=== PATIENT | male | born 1995 | race Two or more races ===

== ENCOUNTER 2016-05-20 05:44 | Inpatient (IN) | payer MEDICAID ==
[2016-05-20] VITALS (9 sets, daily range): BP systolic 117–170; BP diastolic 90–116
[~2016-05-20] VITALS: Ht 170.2 cm; Wt 72.6 kg
[~2016-05-20 05:44] MED LIST: CEPHALEXIN500 MG ORAL; HYDROCORTISONE28 G2 TP; NKM; PEPCID20 MG ORAL; TRAMADOL HCL50 MG ORAL; ZOFRAN ODT4 MG ORAL
[2016-05-20] MEDS ORDERED: NKM (05:51)
--- NOTE | 2016-05-20 05:53 | Emergency Room Report ---
History of Present Illness General Chief Complaint: Chest Pain Source: Patient (Omar Reddy M.D.) Present Illness HPI Patient presents with severe upper abdominal pain that started suddenly yesterday AM at 11 am. He states it started in his spine. Now radiates from epigastric area towards his back. It is in his upper abdomen and in his ribs. He's been vomiting yellow material. He's had a history of pancreatitis and this past but denies that this feels the same as that. He is moving his bowels without diarrhea or constipation. Denies any fevers or chills has no productive cough. No MARTE, rashes, joint pain. Pain is 10/10, burning, and constant. No depression. No dysuria. Admitted in the past for pancreatitis. (Omar Reddy M.D.) Allergies: Coded Allergies: NO KNOWN ALLERGIES (Unverified Allergy, Unknown, 10/29/15) Patient History Past Medical History: see triage record Social History: Denies: alcohol use, drug use, smoking Social History Narrative at home Reviewed Nursing Documentation: PMH: Agreed, PSxH: Agreed (Omar Reddy M.D.) Nursing Documentation-PMH Past Medical History: No Stated History Hx Cardiac Problems: No Hx Asthma: Yes Hx Cancer: Yes - pt stated aunt had stage 4 cancer Hx Gastrointestinal Problems: No Hx Neurological Problems: No (Omar Reddy M.D.) Review of Systems All Other Systems: negative except mentioned in HPI (Omar Reddy M.D.) Physical Exam Vital Signs Date Time Temp Pulse Resp B/P Pulse Ox O2 Delivery O2 Flow Rate FiO2 05/20/16 05:48 97.0 82 12 164/113 96 Room Air Sp02 EP Interpretation: reviewed, normal General Appearance: moderate distress Head: normocephalic Eyes: bilateral eye PERRL, bilateral eye normal inspection ENT: moist mucus membranes Neck: supple Respiratory: lungs clear, normal breath sounds Cardiovascular #1: regular rate, rhythm Cardiovascular #2: 2+ radial (R) Gastrointestinal: normal inspection, no mass, non-distended, no rebound, abnormal bowel sounds, guarding, tenderness - epiagastic Musculoskeletal: back normal, gait/station normal, normal range of motion Neurologic: alert, oriented x3, grossly normal Psychiatric: anxious - in pain Skin: normal inspection, warm/dry (Omar Reddy M.D.) Medical Decision Making Diagnostic Impression: Primary Impression: Abdominal pain Qualified Codes: R10.13 - Epigastric pain Additional Impressions: Leukocytosis Qualified Codes: D72.829 - Elevated white blood cell count, unspecified Pancreatitis Qualified Codes: K85.90 - Acute pancreatitis without necrosis or infection, unspecified ER Course Patient presents with severe abdominal pain. He has a history of pancreatitis and states this feels different. His abdomen is no family digit. Differential includes perforated viscus, pancreatitis, cholecystitis, peptic ulcer disease, GERD, diverticulitis amongst others. Emergent evaluation with labs and a chest x-ray and CT scan are undertaken also an EKG was performed. The patient was given IV hydration and analgesia. Chest x-ray returns with no free air. The patient has leukocytosis. Antibiotics were begun. Patient with decreased pain 3/10. CT scan. Second dose of antiemetic is given with Reglan. The patient is unable to tolerate by mouth contrast. The patient was signed out to Dr. Sweeney. Laboratory Tests Test 05/20/16 06:00 05/20/16 08:30 05/20/16 09:05 White Blood Count 17.0 K/UL (4.8-10.8) H Red Blood Count 5.24 M/UL (4.70-6.10) Hemoglobin 17.3 G/DL (14.2-18.0) Hematocrit 50.8 % (42.0-52.0) Mean Corpuscular Volume 97 FL (80-99) Mean Corpuscular Hemoglobin 33.0 PG (27.0-31.0) H Mean Corpuscular Hemoglobin Concent 34.1 G/DL (32.0-36.0) Red Cell Distribution Width 12.4 % (11.6-14.8) Platelet Count 459 K/UL (150-450) H Mean Platelet Volume 7.1 FL (6.5-10.1) Neutrophils (%) (Auto) 61.0 % (45.0-75.0) Lymphocytes (%) (Auto) 29.1 % (20.0-45.0) Monocytes (%) (Auto) 8.8 % (1.0-10.0) Eosinophils (%) (Auto) 0.3 % (0.0-3.0) Basophils (%) (Auto) 0.7 % (0.0-2.0) Prothrombin Time 11.2 SEC (9.30-11.50) Prothrombin Time INR 1.1 (0.9-1.1) PTT 22 SEC (23-33) L Sodium Level 138 mEQ/L (135-145) Potassium Level 3.7 mEQ/L (3.4-4.9) Chloride Level 92 mEQ/L (98-107) L Carbon Dioxide Level 23 mEQ/L (20-30) Anion Gap 23 (5-15) H Blood Urea Nitrogen 14 mg/dL (7-23) Creatinine 0.7 mg/dL (0.7-1.2) Estimate Glomerular Filtration Rate > 60 mL/min (>60) Glucose Level 137 mg/dL (74-106) H Lactic Acid Level 5.10 mmol/L (0.66-2.22) H 2.30 mmol/L (0.66-2.22) H Calcium Level 9.7 mg/dL (8.6-10.2) Total Bilirubin 0.5 mg/dL (0.0-1.2) Aspartate Amino Transferase (AST) 60 U/L (5-40) H Alanine Aminotransferase (ALT) 69 U/L (3-41) H Alkaline Phosphatase 94 U/L (40-129) Total Creatine Kinase 118 U/L (38-174) Total Protein 7.7 g/dL (6.6-8.7) Albumin 5.0 g/dL (3.5-5.2) Globulin 2.7 g/dL Albumin/Globulin Ratio 1.8 (1.0-2.7) Lipase 800 U/L (< 60) H Urine Color Pale yellow Urine Appearance Clear Urine pH 7 (4.5-8.0) Urine Specific [place] 1.010 (1.005-1.035) Urine Protein Negative (NEGATIVE) Urine Glucose (UA) Negative (NEGATIVE) Urine Ketones Negative (NEGATIVE) Urine Occult Blood Negative (NEGATIVE) Urine Nitrite Negative (NEGATIVE) Urine Bilirubin Negative (NEGATIVE) Urine Urobilinogen Normal MG/DL (0.0-1.0) Urine Leukocyte Esterase Negative (NEGATIVE) Urine Opiates Screen Positive (NEGATIVE) H Urine Barbiturates Screen Negative (NEGATIVE) Phencyclidine (PCP) Screen Negative (NEGATIVE) Urine Amphetamines Screen Negative (NEGATIVE) Urine Benzodiazepines Screen Negative (NEGATIVE) Urine Cocaine Screen Negative (NEGATIVE) Urine Marijuana (THC) Screen Positive (NEGATIVE) H (Omar Reddy M.D.) ER Course Hospital Course 20-year-old male presents to ED with abdominal pain and vomiting Differential diagnoses include: perforated viscus, gastritis, pancreatitis Clinical course Patient initially seen and evaluated by Dr. Reddy; please see his note for full history and physical Labs - noted leukocytosis, Hb/Hct stable. electrolytes ok. Lipase > 800, AST/ ALT elevated. CT abdomen and pelvis - pancreatitis given IV fluids, antibiotics, pain medications. Vital stable per Case discussed with Dr. Katz and he agreed to accept the patient to his service for further care and support I feel this is a highly complex case requiring extensive working including EKG/ Rhythm strip, Xray/CT/US, Blood/urine lab work, repeat exams while in ED, and administration of strong opiates/narcotics for pain control, admission to hospital or close patient follow up. Diagnosis - acute pancreatitis, abdominal pain, leukocytosis Patient admitted to floor in serious condition Labs Test 05/20/16 06:00 05/20/16 08:30 White Blood Count 17.0 K/UL (4.8-10.8) Red Blood Count 5.24 M/UL (4.70-6.10) Hemoglobin 17.3 G/DL (14.2-18.0) Hematocrit 50.8 % (42.0-52.0) Mean Corpuscular Volume 97 FL (80-99) Mean Corpuscular Hemoglobin 33.0 PG (27.0-31.0) Mean Corpuscular Hemoglobin Concent 34.1 G/DL (32.0-36.0) Red Cell Distribution Width 12.4 % (11.6-14.8) Platelet Count 459 K/UL (150-450) Mean Platelet Volume 7.1 FL (6.5-10.1) Neutrophils (%) (Auto) 61.0 % (45.0-75.0) Lymphocytes (%) (Auto) 29.1 % (20.0-45.0) Monocytes (%) (Auto) 8.8 % (1.0-10.0) Eosinophils (%) (Auto) 0.3 % (0.0-3.0) Basophils (%) (Auto) 0.7 % (0.0-2.0) Prothrombin Time 11.2 SEC (9.30-11.50) Prothromb Time International Ratio 1.1 (0.9-1.1) Activated Partial Thromboplast Time 22 SEC (23-33) Sodium Level 138 mEQ/L (135-145) Potassium Level 3.7 mEQ/L (3.4-4.9) Chloride Level 92 mEQ/L (98-107) Carbon Dioxide Level 23 mEQ/L (20-30) Anion Gap 23 (5-15) Blood Urea Nitrogen 14 mg/dL (7-23) Creatinine 0.7 mg/dL (0.7-1.2) Estimat Glomerular Filtration Rate > 60 mL/min (>60) Glucose Level 137 mg/dL (74-106) Lactic Acid Level 5.10 mmol/L (0.66-2.22) Calcium Level 9.7 mg/dL (8.6-10.2) Total Bilirubin 0.5 mg/dL (0.0-1.2) Aspartate Amino Transf (AST/SGOT) 60 U/L (5-40) Alanine Aminotransferase (ALT/SGPT) 69 U/L (3-41) Alkaline Phosphatase 94 U/L (40-129) Total Creatine Kinase 118 U/L (38-174) Total Protein 7.7 g/dL (6.6-8.7) Albumin 5.0 g/dL (3.5-5.2) Globulin 2.7 g/dL Albumin/Globulin Ratio 1.8 (1.0-2.7) Lipase 800 U/L (< 60) (CANDICE SWEENEY M.D.) EKG Diagnostic Results Rate: normal Rhythm: NSR ST Segments: no acute changes (Omar Reddy M.D.) Rhythm Strip Diag. Results EP Interpretation: yes Rhythm: NSR, no PVC's, no ectopy (Omar Reddy M.D.) Chest X-Ray Diagnostic Results EP Interpretation: Yes Findings: no consolidation, no effusion, no pneumothorax, no acute cardiopulmonary disease Number of Views: 1 (Omar Reddy M.D.) EP Interpretation: Yes Findings: no consolidation, no effusion, no pneumothorax, no acute cardiopulmonary disease Number of Views: 1 (CANDICE SWEENEY M.D.) CT/MRI/US Diagnostic Results CT/MRI/US Diagnostic Results : Imaging Test Ordered: CT A/P Impression acute pancreatitis with peripancreatic stranding. (CANDICE SWEENEY M.D.) Last Vital Signs Date Time Temp Pulse Resp B/P Pulse Ox O2 Delivery O2 Flow Rate FiO2 05/20/16 19:10 78 18 Room Air 05/20/16 19:00 97.2 145/90 97 Status: improved (Omar Reddy M.D.) Status: improved (CANDICE SWEENEY M.D.) Disposition: ADMITTED INPATIENT Condition: Serious Omar Reddy M.D. May 20, 2016 05:53 CANDICE SWEENEY M.D. May 20, 2016 09:12
[2016-05-20] MEDS ORDERED: Morphine Sulfate 4mg/ml Inj IVP ONE ×2 (06:00)
[2016-05-20] MEDS ORDERED: Famotidine 20 MG/ 2ML VIAL IVP ONE (06:00)
[2016-05-20 06:12] LABS: BASOPHILS % (AUTO) 0.7 % (0.0-2.0); EOSINOPHILS % (AUTO) 0.3 % (0.0-3.0); LYMPHOCYTES % (AUTO) 29.1 % (20.0-45.0); MEAN CORPUSCULAR HGB CONC 34.1 G/DL (32.0-36.0); MEAN CORPUSCULAR VOLUME 97 FL (80-99); MEAN PLATELET VOLUME 7.1 FL (6.5-10.1); MONOCYTES % (AUTO) 8.8 % (1.0-10.0); PLATELET COUNT 459 K/UL (150-450); RED BLOOD COUNT 5.24 M/UL (4.70-6.10); RED CELL DISTRIBUTION WIDTH 12.4 % (11.6-14.8)
[2016-05-20 06:21] LABS: INR 1.1 (0.9-1.1); PROTHROMBIN TIME 11.2 SEC (9.30-11.50)
[2016-05-20 06:29] LABS: ALANINE AMINOTRANSFERASE 69 U/L (3-41); ALBUMIN/GLOBULIN RATIO 1.8 (1.0-2.7); ANION GAP 23 (5-15); ASPARTATE AMINO TRANSFERASE 60 U/L (5-40); CALCIUM 9.7 mg/dL (8.6-10.2); CARBON DIOXIDE 23 mEQ/L (20-30); CHLORIDE 92 mEQ/L (98-107); CREATININE 0.7 mg/dL (0.7-1.2); GLOMERULAR FILTRATION RATE > 60 mL/min (>60); HEMOLYSIS 10; POTASSIUM 3.7 mEQ/L (3.4-4.9); SODIUM 138 mEQ/L (135-145); TOTAL PROTEIN 7.7 g/dL (6.6-8.7)
[2016-05-20 06:31] LABS: REFLEX LACTIC ACID YES OR NO YES
[2016-05-20] MEDS ORDERED: metroNIDAZOLE 500mg 100 ML IVPB ONE (06:45)
[2016-05-20] MEDS ORDERED: Metoclopramide 10mg/2ml Inj IVP ONE (06:45)
[2016-05-20] MEDS ORDERED: Cefepime HCl 1 GM in D5W 55 ML IVPB ONE (06:45)
[2016-05-20] MEDS ORDERED: DiphenhydrAMINE 50mg/ml Inj IVP ONE (06:45)
[2016-05-20] MEDS ORDERED: Cefepime 1gm vial ONE (07:01)
[2016-05-20 07:15] LABS: LIPASE 800 U/L (< 60)
[2016-05-20 09:15] LABS: APPEARANCE,URINE CLEAR; KETONES,URINE NEGATIVE (NEGATIVE); PH,URINE 7 (4.5-8.0); PROTEIN,URINE NEGATIVE (NEGATIVE)
[2016-05-20 09:16] LABS: LEUKOCYTE ESTERASE ,URINE NEGATIVE (NEGATIVE); NITRITE,URINE NEGATIVE (NEGATIVE); UROBILINOGEN,URINE NORMAL MG/DL (0.0-1.0)
[2016-05-20] MEDS ORDERED: HYDROmorphone 1mg/ml Carpuject IVP ONE (09:30)
--- NOTE | 2016-05-20 10:25 | Consultation ---
History of Present Illness General Chief Complaint: Chest Pain Reason for Consultation: IM management Present Illness HPI 20 y/old male presented with severe upper abdominal pain that started suddenly yesterday in am he reported pain in the back, radiating from epigastric area pain reported in upper abdomen and under ribs. reported vomiting, emesis yellow color, no blood patient with history of pancreatis denies diarrhea, constipation denies fevers, chills denies cough, congestion, wheezing patient admits to prior hx of pancreatitis as well as ETOH abuse, last use few days ago workup in ED revealed leukocytosis, elevated lactic acid, no fever elevated LFT elevated lipase 800 urine tox screen +marijuana, opiates CT abdomen c/w acute pancreatitis patient started on IVF, antiemetic and analgesics provided, started on antibiotics and transferred to [place] for further management Allergies: Coded Allergies: NO KNOWN ALLERGIES (Unverified Allergy, Unknown, 10/29/15) Medication History Scheduled Cephalexin* (Keflex*), 500 MG ORAL Q12HR Famotidine (Pepcid), 20 MG ORAL DAILY Hydrocortisone Acetate 1% Onit (Hydrocortisone 1% Oint), 28 GM TP PRN No Known Medications* (NKM - No Known Medications*), 0 ., (Reported) No Known Medications* (NKM - No Known Medications*), 0 ., (Reported) Scheduled PRN Ondansetron Odt* (Zofran Odt*), 4 MG ORAL Q8H PRN for Nausea & Vomiting Tramadol Hcl* (Ultram*), 50 MG ORAL Q6H PRN for For Pain Patient History Healthcare decision maker Resuscitation status Full Code Advanced Directive on File Review of Systems Constitutional: Reports: weakness Eye: Reports: no symptoms ENT: Reports: no symptoms Respiratory: Reports: no symptoms, other - hx of asthma Cardiovascular: Reports: no symptoms Gastrointestinal: Reports: see HPI Genitourinary: Reports: no symptoms Musculoskeletal: Reports: no symptoms Skin: Reports: no symptoms Psychiatric: Reports: no symptoms Neurological: Reports: no symptoms Endocrine: Reports: no symptoms Hematologic/Lymphatic: Reports: no symptoms All Other Systems: negative except mentioned in HPI Physical Exam General Appearance: no apparent distress, alert, other - A/A/O x 4 young male in mild distress Lines, tubes and drains: peripheral HEENT: normocephalic, atraumatic, anicteric Neck: non-tender, normal alignment, supple Respiratory/Chest: chest wall non-tender, lungs clear, normal breath sounds, no respiratory distress, no accessory muscle use Cardiovascular/Chest: normal peripheral pulses, normal rate, regular rhythm, no JVD Abdomen: normal bowel sounds - TTP LUQ and epigastric area, soft Extremities: normal range of motion, non-tender, normal inspection, no calf tenderness, normal capillary refill Skin Exam: normal pigmentation, warm/dry 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 II-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 grossly normal, no motor/sensory deficits, alert, oriented x 3, responsive Musculoskeletal: normal muscle bulk Last 24 Hour Vital Signs Date Time Temp Pulse Resp B/P Pulse Ox O2 Delivery O2 Flow Rate FiO2 05/20/16 09:30 98.4 86 16 120/95 100 Room Air 05/20/16 09:30 98.6 86 16 120/95 100 Room Air 05/20/16 08:15 98.4 79 16 117/94 100 Room Air 05/20/16 08:00 98.6 05/20/16 07:55 98.1 79 16 150/97 97 Room Air 05/20/16 06:36 97.0 05/20/16 06:05 97.6 84 27 146/108 100 Room Air 05/20/16 06:05 85 23 Room Air 05/20/16 05:48 97.0 82 12 164/113 96 Room Air Intake and Output 05/19/16 05/20/16 19:00 07:00 Output Total 0 ml Balance 0 ml Output Urine Total 0 ml Laboratory Tests Test 05/20/16 06:00 05/20/16 08:30 05/20/16 09:05 White Blood Count 17.0 K/UL (4.8-10.8) H Red Blood Count 5.24 M/UL (4.70-6.10) Hemoglobin 17.3 G/DL (14.2-18.0) Hematocrit 50.8 % (42.0-52.0) Mean Corpuscular Volume 97 FL (80-99) Mean Corpuscular Hemoglobin 33.0 PG (27.0-31.0) H Mean Corpuscular Hemoglobin Concent 34.1 G/DL (32.0-36.0) Red Cell Distribution Width 12.4 % (11.6-14.8) Platelet Count 459 K/UL (150-450) H Mean Platelet Volume 7.1 FL (6.5-10.1) Neutrophils (%) (Auto) 61.0 % (45.0-75.0) Lymphocytes (%) (Auto) 29.1 % (20.0-45.0) Monocytes (%) (Auto) 8.8 % (1.0-10.0) Eosinophils (%) (Auto) 0.3 % (0.0-3.0) Basophils (%) (Auto) 0.7 % (0.0-2.0) Prothrombin Time 11.2 SEC (9.30-11.50) Prothromb Time International Ratio 1.1 (0.9-1.1) Activated Partial Thromboplast Time 22 SEC (23-33) L Sodium Level 138 mEQ/L (135-145) Potassium Level 3.7 mEQ/L (3.4-4.9) Chloride Level 92 mEQ/L (98-107) L Carbon Dioxide Level 23 mEQ/L (20-30) Anion Gap 23 (5-15) H Blood Urea Nitrogen 14 mg/dL (7-23) Creatinine 0.7 mg/dL (0.7-1.2) Estimat Glomerular Filtration Rate > 60 mL/min (>60) Glucose Level 137 mg/dL (74-106) H Lactic Acid Level 5.10 mmol/L (0.66-2.22) H Pending Calcium Level 9.7 mg/dL (8.6-10.2) Total Bilirubin 0.5 mg/dL (0.0-1.2) Aspartate Amino Transf (AST/SGOT) 60 U/L (5-40) H Alanine Aminotransferase (ALT/SGPT) 69 U/L (3-41) H Alkaline Phosphatase 94 U/L (40-129) Total Creatine Kinase 118 U/L (38-174) Total Protein 7.7 g/dL (6.6-8.7) Albumin 5.0 g/dL (3.5-5.2) Globulin 2.7 g/dL Albumin/Globulin Ratio 1.8 (1.0-2.7) Lipase 800 U/L (< 60) H Urine Color Pale yellow Urine Appearance Clear Urine pH 7 (4.5-8.0) Urine Specific [place] 1.010 (1.005-1.035) Urine Protein Negative (NEGATIVE) Urine Glucose (UA) Negative (NEGATIVE) Urine Ketones Negative (NEGATIVE) Urine Occult Blood Negative (NEGATIVE) Urine Nitrite Negative (NEGATIVE) Urine Bilirubin Negative (NEGATIVE) Urine Urobilinogen Normal MG/DL (0.0-1.0) Urine Leukocyte Esterase Negative (NEGATIVE) Urine Opiates Screen Positive (NEGATIVE) H Urine Barbiturates Screen Negative (NEGATIVE) Phencyclidine (PCP) Screen Negative (NEGATIVE) Urine Amphetamines Screen Negative (NEGATIVE) Urine Benzodiazepines Screen Negative (NEGATIVE) Urine Cocaine Screen Negative (NEGATIVE) Urine Marijuana (THC) Screen Positive (NEGATIVE) H Height (Feet): 5 Height (Inches): 7.00 Weight (Pounds): 160 Medications Current Medications Medications (Trade) Dose Ordered Sig/Jesica Route PRN Reason Start Time Stop Time Status Last Admin Dose Admin Sodium Chloride (Sodium Chloride 1000ml bag) 1,000 ml @ 300 mls/hr Q3H20M IV 05/20/16 06:00 06/19/16 05:59 05/20/16 09:12 Assessment/Plan Assessment/Plan ASSESSMENT sepsis acute pancreatitis abdominal pain elevated LFT hx of asthma ETOH abuse hx of pancreatitis 2 to ETOH abuse drug abuse ( marijuana, opiates) PLAN OF CARE [facility] floor NPO IVF pain management fup with amylase, lipase trend LFT blood cx start empiric abx GI consult as per PMD ' DVT GI prophylaxis 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
[2016-05-20] MEDS ORDERED: Mylanta II UD 30ml ORAL PRN (10:30)
[2016-05-20] MEDS ORDERED: DuoNeb 0.5-3(2.5)mg/3ml neb HHN PRN (10:30)
[2016-05-20] MEDS: D5 1/2NS w/KCl 20mEq 1,000 ML IV SCH ×2 (11:43→21:39)
[2016-05-20] MEDS: Piperacillin/Tazobactam 3.375 GM in D5W 110 ML IVPB SCH ×2 (13:19→21:39)
[2016-05-20] MEDS: Morphine Sulfate 2mg/ml Inj IVP PRN ×3 (13:31→20:24)
--- NOTE | 2016-05-20 16:26 | Cardiology Report ---
APPROVED REPORT EKG Measurement Heart [id number] Normal sinus rhythm Normal ECG
[2016-05-20] MEDS: Heparin 5000 units/ml inj SUBQ SCH (20:28)
[2016-05-21] VITALS: BP 151/108
[2016-05-21] MEDS: Morphine Sulfate 2mg/ml Inj IVP PRN ×2 (00:39→08:34)
[2016-05-21 04:00] VITALS: BP 142/98
[2016-05-21] MEDS: Piperacillin/Tazobactam 3.375 GM in D5W 110 ML IVPB SCH (05:18)
[2016-05-21] MEDS: D5 1/2NS w/KCl 20mEq 1,000 ML IV SCH (05:18)
[2016-05-21 07:13] LABS: BASOPHILS % (AUTO) 0.3 % (0.0-2.0); EOSINOPHILS % (AUTO) 0.2 % (0.0-3.0); MEAN CORPUSCULAR HEMOGLOBIN 33.1 PG (27.0-31.0); MEAN CORPUSCULAR HGB CONC 34.1 G/DL (32.0-36.0); MEAN CORPUSCULAR VOLUME 97 FL (80-99); MEAN PLATELET VOLUME 7.8 FL (6.5-10.1); MONOCYTES % (AUTO) 7.3 % (1.0-10.0); NEUTROPHILS % (AUTO) 84.2 % (45.0-75.0); PLATELET COUNT 316 K/UL (150-450); RED BLOOD COUNT 4.83 M/UL (4.70-6.10); RED CELL DISTRIBUTION WIDTH 12.6 % (11.6-14.8); WHITE BLOOD COUNT 13.7 K/UL (4.8-10.8)
[2016-05-21 07:17] LABS: ALANINE AMINOTRANSFERASE 42 U/L (3-41); ALBUMIN/GLOBULIN RATIO 1.5 (1.0-2.7); AMYLASE 243 U/L (10-110); ANION GAP 14 (5-15); ASPARTATE AMINO TRANSFERASE 38 U/L (5-40); CARBON DIOXIDE 27 mEQ/L (20-30); CHLORIDE 95 mEQ/L (98-107); CREATININE 0.7 mg/dL (0.7-1.2); GLOMERULAR FILTRATION RATE > 60 mL/min (>60); HEMOLYSIS 7; MAGNESIUM 1.8 mg/dL (1.7-2.5); POTASSIUM 3.7 mEQ/L (3.4-4.9); SODIUM 136 mEQ/L (135-145); TOTAL PROTEIN 6.7 g/dL (6.6-8.7)
[2016-05-21 07:41] LABS: LIPASE 381 U/L (< 60)
[2016-05-21 08:00] VITALS: BP 140/93
[2016-05-21] MEDS: Heparin 5000 units/ml inj SUBQ SCH (08:36)
[2016-05-21 12:00] VITALS: BP 154/93
[2016-05-21] MEDS ORDERED: Tubing IV Secondary IV ONE (13:24)
--- NOTE | 2016-05-22 08:37 | Discharge Summary ---
Discharge Summary Hospital Course Date of Admission May 20, 2016 at 08:05 Date of Discharge May 21, 2016 at 13:25 Admitting Diagnosis pancreatitis HPI Sly Scherer is a 20 year old male who was admitted on May 20, 2016 at 08:05 for Pancreatitis Hospital Course dc summary dictated # [id number] Discharge Condition Upon Discharge: stable Discharge Disposition Patient signed AMA Discharge Diagnoses: Sami (Mikki),Soniya MISTRY May 22, 2016 08:37
--- NOTE | 2016-05-22 09:12 | Diagnostic Imaging Report ---
Date of Service: 05/20/16. Indication: Acute chest pain. Comparison: None available. Technique: A frontal view of the chest is provided. Findings: Linear atelectasis is noted at the left lung base. The cardiomediastinal silhouette is unremarkable. There is no clinically significant pneumothorax or pleural effusion. The osseous structures do not demonstrate any evidence of acute process. The upper abdomen is unremarkable. Impression: 1. No radiographic evidence of acute cardiopulmonary disease.
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
--- NOTE | 2016-05-23 02:37 | Discharge Summary 2 SIG ---
DATE OF ADMISSION: 05/20/2016 DATE OF DISCHARGE: 05/21/2016 REASON FOR ADMISSION : 20-year-old male presented to emergency room with upper abdominal pain that started a day before. On presentation, he reported pain in the back radiating from the epigastric area. The pain was reported in the upper abdomen under the ribs. He reported vomiting, and emesis, yellow color, and no blood. The patient has a history of pancreatitis secondary to alcohol abuse. He denied diarrhea, constipation. He denied fevers, chills. No cough. No congestion. No wheezing. The patient admitted to prior history of pancreatitis and alcohol abuse. Last alcohol use was a few days ago. Workup in the emergency department revealed leukocytosis and elevated lactic acid, but no fever. Elevated LFT. Lipase 800. Urine toxicology screen was positive for marijuana and opiates. CT of the abdomen and pelvis was consistent with acute pancreatitis. The patient was started on IV antibiotics and IV hydration. Antiemetics and analgesics were provided in the ED, and the patient was transferred to medical/surgical floor for further management. ADMITTING DIAGNOSES: 1. Acute pancreatitis. 2. Possible sepsis. 3. Abdominal pain. HOSPITAL STAY: The patient was admitted to medical/surgical floor. The patient was NPO. The patient was on the IV fluids. Pain management was provided . Lipase next day was trending down to 381 and amylase was 243. Blood culture preliminary negative. The patient was on empiric antibiotics. The patient was counseled on abstinence from alcohol and illicit street drugs. GI consult was pending. LFTs were trending down. GI prophylaxis provided. On 05/21/2016, the patient decided to sign against medical advice. Risks and consequences regarding signing against medical advise were explained to the patient.He did not want to wait for his medical doctor to call back, signed the form, and left. Sly Katz D.O. I Soniya Gallardo (Vanchtein) Johanne DR: Ricco JOB#: [id number] CC: JESUS
--- NOTE | 2016-06-19 07:10 | History & Physical ---
History and Physical History & Physicial History of Present Illness General Chief Complaint: abdominal pain Present Illness HPI 20 y/old male presented with severe upper abdominal pain that started suddenly yesterday in am he reported pain in the back, radiating from epigastric area pain reported in upper abdomen and under ribs. reported vomiting, emesis yellow color, no blood patient with history of pancreatis denies diarrhea, constipation denies fevers, chills denies cough, congestion, wheezing patient admits to prior hx of pancreatitis as well as ETOH abuse, last use few days ago workup in ED revealed leukocytosis, elevated lactic acid, no fever elevated LFT elevated lipase 800 urine tox screen +marijuana, opiates CT abdomen c/w acute pancreatitis patient started on IVF, antiemetic and analgesics provided, started on antibiotics and transferred to MD for further management Allergies: Coded Allergies: NO KNOWN ALLERGIES (Unverified Allergy, Unknown, 10/29/15) Medication History Scheduled Cephalexin* (Keflex*), 500 MG ORAL Q12HR Famotidine (Pepcid), 20 MG ORAL DAILY Hydrocortisone Acetate 1% Onit (Hydrocortisone 1% Oint), 28 GM TP PRN No Known Medications* (NKM - No Known Medications*), 0 ., (Reported) No Known Medications* (NKM - No Known Medications*), 0 ., (Reported) Scheduled PRN Ondansetron Odt* (Zofran Odt*), 4 MG ORAL Q8H PRN for Nausea & Vomiting Tramadol Hcl* (Ultram*), 50 MG ORAL Q6H PRN for For Pain Patient History Healthcare decision maker Resuscitation status Full Code Advanced Directive on File Review of Systems Constitutional: Reports: weakness Eye: Reports: no symptoms ENT: Reports: no symptoms Respiratory: Reports: no symptoms, other - hx of asthma Cardiovascular: Reports: no symptoms Gastrointestinal: Reports: see HPI Genitourinary: Reports: no symptoms Musculoskeletal: Reports: no symptoms Skin: Reports: no symptoms Psychiatric: Reports: no symptoms Neurological: Reports: no symptoms Endocrine: Reports: no symptoms Hematologic/Lymphatic: Reports: no symptoms All Other Systems: negative except mentioned in HPI Physical Exam General Appearance: no apparent distress, alert, other - A/A/O x 4 young male in mild distress Lines, tubes and drains: peripheral HEENT: normocephalic, atraumatic, anicteric Neck: non-tender, normal alignment, supple Respiratory/Chest: chest wall non-tender, lungs clear, normal breath sounds, no respiratory distress, no accessory muscle use Cardiovascular/Chest: normal peripheral pulses, normal rate, regular rhythm, no JVD Abdomen: normal bowel sounds - TTP LUQ and epigastric area, soft Extremities: normal range of motion, non-tender, normal inspection, no calf tenderness, normal capillary refill Skin Exam: normal pigmentation, warm/dry 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, no motor/sensory deficits, alert, oriented x 3, responsive Musculoskeletal: normal muscle bulk Last 24 Hour Vital Signs Date Time Temp Pulse Resp B/P Pulse Ox O2 Delivery O2 Flow Rate FiO2 05/20/16 09:30 98.4 86 16 120/95 100 Room Air 05/20/16 09:30 98.6 86 16 120/95 100 Room Air 05/20/16 08:15 98.4 79 16 117/94 100 Room Air 05/20/16 08:00 98.6 05/20/16 07:55 98.1 79 16 150/97 97 Room Air 05/20/16 06:36 97.0 05/20/16 06:05 97.6 84 27 146/108 100 Room Air 05/20/16 06:05 85 23 Room Air 05/20/16 05:48 97.0 82 12 164/113 96 Room Air Intake and Output 05/19/16 05/20/16 19:00 07:00 Output Total 0 ml Balance 0 ml Output Urine Total 0 ml Laboratory Tests Test 05/20/16 06:00 05/20/16 08:30 05/20/16 09:05 White Blood Count 17.0 K/UL (4.8-10.8) H Red Blood Count 5.24 M/UL (4.70-6.10) Hemoglobin 17.3 G/DL (14.2-18.0) Hematocrit 50.8 % (42.0-52.0) Mean Corpuscular Volume 97 FL (80-99) Mean Corpuscular Hemoglobin 33.0 PG (27.0-31.0) H Mean Corpuscular Hemoglobin Concent 34.1 G/DL (32.0-36.0) Red Cell Distribution Width 12.4 % (11.6-14.8) Platelet Count 459 K/UL (150-450) H Mean Platelet Volume 7.1 FL (6.5-10.1) Neutrophils (%) (Auto) 61.0 % (45.0-75.0) Lymphocytes (%) (Auto) 29.1 % (20.0-45.0) Monocytes (%) (Auto) 8.8 % (1.0-10.0) Eosinophils (%) (Auto) 0.3 % (0.0-3.0) Basophils (%) (Auto) 0.7 % (0.0-2.0) Prothrombin Time 11.2 SEC (9.30-11.50) Prothromb Time International Ratio 1.1 (0.9-1.1) Activated Partial Thromboplast Time 22 SEC (23-33) L Sodium Level 138 mEQ/L (135-145) Potassium Level 3.7 mEQ/L (3.4-4.9) Chloride Level 92 mEQ/L (98-107) L Carbon Dioxide Level 23 mEQ/L (20-30) Anion Gap 23 (5-15) H Blood Urea Nitrogen 14 mg/dL (7-23) Creatinine 0.7 mg/dL (0.7-1.2) Estimat Glomerular Filtration Rate > 60 mL/min (>60) Glucose Level 137 mg/dL (74-106) H Lactic Acid Level 5.10 mmol/L (0.66-2.22) H Pending Calcium Level 9.7 mg/dL (8.6-10.2) Total Bilirubin 0.5 mg/dL (0.0-1.2) Aspartate Amino Transf (AST/SGOT) 60 U/L (5-40) H Alanine Aminotransferase (ALT/SGPT) 69 U/L (3-41) H Alkaline Phosphatase 94 U/L (40-129) Total Creatine Kinase 118 U/L (38-174) Total Protein 7.7 g/dL (6.6-8.7) Albumin 5.0 g/dL (3.5-5.2) Globulin 2.7 g/dL Albumin/Globulin Ratio 1.8 (1.0-2.7) Lipase 800 U/L (< 60) H Urine Color Pale yellow Urine Appearance Clear Urine pH 7 (4.5-8.0) Urine Specific [place] 1.010 (1.005-1.035) Urine Protein Negative (NEGATIVE) Urine Glucose (UA) Negative (NEGATIVE) Urine Ketones Negative (NEGATIVE) Urine Occult Blood Negative (NEGATIVE) Urine Nitrite Negative (NEGATIVE) Urine Bilirubin Negative (NEGATIVE) Urine Urobilinogen Normal MG/DL (0.0-1.0) Urine Leukocyte Esterase Negative (NEGATIVE) Urine Opiates Screen Positive (NEGATIVE) H Urine Barbiturates Screen Negative (NEGATIVE) Phencyclidine (PCP) Screen Negative (NEGATIVE) Urine Amphetamines Screen Negative (NEGATIVE) Urine Benzodiazepines Screen Negative (NEGATIVE) Urine Cocaine Screen Negative (NEGATIVE) Urine Marijuana (THC) Screen Positive (NEGATIVE) H Height (Feet): 5 Height (Inches): 7.00 Weight (Pounds): 160 Medications Current Medications Medications (Trade) Dose Ordered Sig/Jesica Route PRN Reason Start Time Stop Time Status Last Admin Dose Admin Sodium Chloride (Sodium Chloride 1000ml bag) 1,000 ml @ 300 mls/hr Q3H20M IV 05/20/16 06:00 06/19/16 05:59 05/20/16 09:12 Assessment/Plan Assessment/Plan ASSESSMENT sepsis acute pancreatitis abdominal pain elevated LFT hx of asthma ETOH abuse hx of pancreatitis 2 to ETOH abuse drug abuse ( marijuana, opiates) PLAN OF CARE [facility] floor NPO IVF pain management fup with amylase, lipase trend LFT blood cx start empiric abx GI consult as per PMD ' DVT GI prophylaxis 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
== END 2016-05-21 13:25 | disposition left against medical advice (07) | DRG 282 ==
LOC: EMR 06:10 → 4E 08:05 → EDBEDREQ 08:56 → 3E 05-21 01:30
DX: K85.90 Acute pancreatitis without necrosis or infection, unspecified (principal); A41.9 Sepsis, unspecified organism; F12.10 Cannabis abuse, uncomplicated; F11.10 Opioid abuse, uncomplicated; J45.909 Unspecified asthma, uncomplicated
CPT/HCPCS: 36415; 71010; 74177; 80053; 80300; 81003; 82150; 82550; 83605; 83690; 83735; 85025; 85610; 85730; 86850; 86900; 86901; 87040; 93005; 94664; 99282; J2405; J2765

== ENCOUNTER 2016-07-25 04:28 | Emergency (ER) | payer MEDICAID ==
[~2016-07-25] VITALS: Ht 170.2 cm; Wt 72.6 kg
[2016-07-25 04:40] VITALS: BP 140/89
--- NOTE | 2016-07-25 04:52 | Emergency Room Report ---
History of Present Illness General Chief Complaint: General Complaint Source: Patient Present Illness HPI 20YOM with 1 week of SOB when lying flat, improves with lying forward. No fever /chills, chest pain, abd pain. Recent URI symptoms. Atraumatic. Denies smoking, self or fam history of asthma. Allergies: Coded Allergies: NO KNOWN ALLERGIES (Unverified Allergy, Unknown, 10/29/15) Patient History Past Medical History: none Past Surgical History: none Pertinent Family History: none Social History: Denies: alcohol use, drug use, smoking Immunizations: UTD Reviewed Nursing Documentation: PMH: Agreed, PSxH: Agreed Nursing Documentation-PMH Past Medical History: No History, Except For Hx Cardiac Problems: No - Eczema Hx Asthma: Yes Hx Cancer: No Hx Gastrointestinal Problems: Yes Hx Neurological Problems: No Physical Exam Vital Signs Date Time Temp Pulse Resp B/P Pulse Ox O2 Delivery O2 Flow Rate FiO2 07/25/16 04:36 97.3 95 19 140/89 95 Room Air Sp02 EP Interpretation: reviewed, normal General Appearance: normal inspection, well appearing, no apparent distress, alert, GCS 15, non-toxic Head: normocephalic, atraumatic Eyes: bilateral eye EOMI, bilateral eye PERRL ENT: normal ENT inspection, hearing grossly normal, normal voice Neck: normal inspection, full range of motion, supple, no bony tend Respiratory: normal inspection, lungs clear, normal breath sounds, no rhonchi, no respiratory distress, no retraction, no accessory muscle use, no wheezing Cardiovascular #1: regular rate, rhythm, no edema, no murmur, other - No friction rub Gastrointestinal: normal inspection, normal bowel sounds, non tender, soft, no guarding, no hernia Genitourinary: no CVA tenderness Musculoskeletal: normal inspection, back normal, normal range of motion, Aury' s Sign negative Neurologic: normal inspection, alert, oriented x3, responsive, 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 Afebrile. VSS DDx includes pericarditis, myocarditis, PNA, URI, reactive airway disease, PE PLAN Will try empiric albuterol Will check troponin to eval for pericarditis/myocarditis ECG CXR to r/o PTX Reassess EKG Diagnostic Results Rate: normal Rhythm: NSR ST Segments: no acute changes ASA given to the pt in ED: No Chest X-Ray Diagnostic Results EP Interpretation: Yes Findings: no consolidation, no effusion, no pneumothorax, no acute cardiopulmonary disease Number of Views: 1 Reevaluation Time: 06:06 Last Vital Signs Date Time Temp Pulse Resp B/P Pulse Ox O2 Delivery O2 Flow Rate FiO2 07/25/16 04:36 97.3 95 19 140/89 95 Room Air Status: improved Reevaluation Impression ECG: No pericarditis CXR: No ptx or PNA Labs: No leuks. H&H stable. Troponin 0. Improved with 1 albuterol neb - able to lay down without chest discomfort -Unlikely pericarditis given normal ECG without ST elevation/[place] depression, neg troponin, no pericardial friction rub - No PTX - ?reactive airway disease/bronchitis with improvement with albuterol Will Rx Albuterol PMD followup Advised on elevated LFTs Disposition: HOME, SELF-CARE Scripts Albuterol Sulfate (VENTOLIN HFA) 18 Gm Hfa.aer.ad 1 PUFF INH EVERY 6 HOURS for Shortness of Breath, #18 GM 0 Refills Prov: DYLON CAIN M.D. 07/25/16 DYLON CAIN M.D. Jul 25, 2016 04:52
[2016-07-25] MEDS ORDERED: Albuterol ud Inhalation HHN ONE (05:00)
[2016-07-25] MEDS ORDERED: Tylenol #3 tab (300mg/30mg) ORAL ONE (05:15)
[2016-07-25 05:23] LABS: BASOPHILS % (AUTO) 1.7 % (0.0-2.0); EOSINOPHILS % (AUTO) 12.7 % (0.0-3.0); MEAN CORPUSCULAR HGB CONC 33.2 G/DL (32.0-36.0); MEAN CORPUSCULAR VOLUME 97 FL (80-99); MONOCYTES % (AUTO) 9.3 % (1.0-10.0); NEUTROPHILS % (AUTO) 54.3 % (45.0-75.0); PLATELET COUNT 239 K/UL (150-450); RED BLOOD COUNT 4.83 M/UL (4.70-6.10); RED CELL DISTRIBUTION WIDTH 11.9 % (11.6-14.8); WHITE BLOOD COUNT 8.3 K/UL (4.8-10.8)
[2016-07-25] MEDS ORDERED: VENTOLIN HFA18 GM INH (05:38)
[2016-07-25 05:39] LABS: ALANINE AMINOTRANSFERASE 135 U/L (3-41); ALBUMIN/GLOBULIN RATIO 1.6 (1.0-2.7); ANION GAP 14 (5-15); ASPARTATE AMINO TRANSFERASE 211 U/L (5-40); CALCIUM 9.4 mg/dL (8.6-10.2); CARBON DIOXIDE 28 mEQ/L (20-30); CHLORIDE 98 mEQ/L (98-107); CREATININE 0.6 mg/dL (0.7-1.2); GLOMERULAR FILTRATION RATE > 60 mL/min (>60); HEMOLYSIS 19; POTASSIUM 3.6 mEQ/L (3.4-4.9); SODIUM 140 mEQ/L (135-145); TOTAL PROTEIN 7.3 g/dL (6.6-8.7)
[2016-07-25 05:49] LABS: CKMB 2.2 ng/mL (< 6.7)
[2016-07-25 06:07] LABS: TROPONIN I < 0.30 ng/mL (<=0.30)
[2016-07-25 06:15] VITALS: BP 148/97
[2016-07-25 06:20] VITALS: BP 148/97
--- NOTE | 2016-07-25 10:13 | Diagnostic Imaging Report ---
Indication: SOB Technique: One view of the chest Comparison: none Findings: Lungs and pleural spaces are clear. Heart size is normal. No significant change Impression: No acute process
--- NOTE | 2016-07-25 15:29 | Cardiology Report ---
APPROVED REPORT EKG Measurement Heart [id number] Normal sinus rhythm Normal ECG
== END 2016-07-25 06:20 | disposition home or self-care (01) ==
LOC: EMR 04:55
DX: J45.909 Unspecified asthma, uncomplicated (principal)
CPT/HCPCS: 36415; 71010; 80053; 82550; 82553; 84484; 85025; 93005; 94640; 94664; 99283

== ENCOUNTER 2016-07-30 08:00 | Emergency (ER) | payer MEDICAID ==
[~2016-07-30] VITALS: Ht 170.2 cm; Wt 72.6 kg
[~2016-07-30 08:00] MED LIST changes: +VENTOLIN HFA18 GM INH
--- NOTE | 2016-07-30 08:26 | Emergency Room Report ---
History of Present Illness General Chief Complaint: Abdominal Pain Source: Patient Present Illness HPI Patient is a 20-year-old male who presented after increased abdominal pain as well as vomiting. Patient was having sharp pain to the upper abdomen. Patient had a recent heavy alcohol use. He reported having prior episodes of pancreatitis after drinking alcohol. Patient states he drank approximately one bottle of vodka yesterday. The patient states he also took edible marijuana. He denies any fever or hematemesis. He denies any bloody stool. Allergies: Coded Allergies: NO KNOWN ALLERGIES (Unverified Allergy, Unknown, 10/29/15) Patient History Past Medical History: see triage record Reviewed Nursing Documentation: PMH: Agreed, PSxH: Agreed Nursing Documentation-PMH Past Medical History: No History, Except For Hx Asthma: Yes Hx Cancer: No Hx Gastrointestinal Problems: Yes - pancreatitis Hx Neurological Problems: No Review of Systems All Other Systems: negative except mentioned in HPI Physical Exam Vital Signs Date Time Temp Pulse Resp B/P Pulse Ox O2 Delivery O2 Flow Rate FiO2 07/30/16 08:11 97.9 99 18 142/92 97 Room Air Sp02 EP Interpretation: reviewed, normal General Appearance: normal inspection, well appearing, no apparent distress, alert, GCS 15 Head: atraumatic ENT: normal ENT inspection, hearing grossly normal, normal voice Neck: normal inspection, full range of motion, supple, no bony tend Respiratory: normal inspection, lungs clear, normal breath sounds, no respiratory distress, no retraction, no wheezing Cardiovascular #1: regular rate, rhythm, no edema Gastrointestinal: normal inspection, normal bowel sounds, non tender, soft, no guarding, no hernia Genitourinary: no CVA tenderness Musculoskeletal: normal inspection, back normal, normal range of motion Neurologic: normal inspection, alert, responsive, speech normal Psychiatric: normal inspection, judgement/insight normal, mood/affect normal Skin: normal inspection, normal color, no rash Medical Decision Making Diagnostic Impression: Primary Impression: ETOH abuse Additional Impression: Pancreatitis ER Course Patient presented for abdominal pain. Differential diagnoses included ischemic bowel, appendicitis, perforated viscus, abdominal aortic aneurysm, inferior myocardial infarction, viral gastroenteritis Because of complexity of patient's case laboratory testing and imaging studies were ordered.Patient was given IV antiemetics as well as Mylanta. Patient was noted to have lab testing consistent with pancreatitis. Patients laboratory testing in noted to have normal WBC and unremarkable liver function tests. Patient was given IV fluids. He was advised alcohol cessation. He was given prescription for pain medications. He was advised to return for high fever, worsening pain, persistent vomiting or other concerns. Labs Test 07/30/16 08:40 White Blood Count 9.6 K/UL (4.8-10.8) Red Blood Count 5.09 M/UL (4.70-6.10) Hemoglobin 16.3 G/DL (14.2-18.0) Hematocrit 49.2 % (42.0-52.0) Mean Corpuscular Volume 97 FL (80-99) Mean Corpuscular Hemoglobin 32.0 PG (27.0-31.0) Mean Corpuscular Hemoglobin Concent 33.1 G/DL (32.0-36.0) Red Cell Distribution Width 12.1 % (11.6-14.8) Platelet Count 285 K/UL (150-450) Mean Platelet Volume 7.5 FL (6.5-10.1) Neutrophils (%) (Auto) 64.0 % (45.0-75.0) Lymphocytes (%) (Auto) 15.5 % (20.0-45.0) Monocytes (%) (Auto) 8.4 % (1.0-10.0) Eosinophils (%) (Auto) 10.6 % (0.0-3.0) Basophils (%) (Auto) 1.5 % (0.0-2.0) Prothrombin Time 11.0 SEC (9.30-11.50) Prothromb Time International Ratio 1.1 (0.9-1.1) Activated Partial Thromboplast Time 26 SEC (23-33) Sodium Level 140 mEQ/L (135-145) Potassium Level 3.6 mEQ/L (3.4-4.9) Chloride Level 97 mEQ/L (98-107) Carbon Dioxide Level 27 mEQ/L (20-30) Anion Gap 16 (5-15) Blood Urea Nitrogen 6 mg/dL (7-23) Creatinine 0.6 mg/dL (0.7-1.2) Estimat Glomerular Filtration Rate > 60 mL/min (>60) Glucose Level 121 mg/dL (74-106) Calcium Level 9.2 mg/dL (8.6-10.2) Total Bilirubin 0.2 mg/dL (0.0-1.2) Aspartate Amino Transf (AST/SGOT) 107 U/L (5-40) Alanine Aminotransferase (ALT/SGPT) 94 U/L (3-41) Alkaline Phosphatase 88 U/L (40-129) Total Protein 7.1 g/dL (6.6-8.7) Albumin 4.1 g/dL (3.5-5.2) Globulin 3.0 g/dL Albumin/Globulin Ratio 1.3 (1.0-2.7) Lipase > 300 U/L (< 60) Last Vital Signs Date Time Temp Pulse Resp B/P Pulse Ox O2 Delivery O2 Flow Rate FiO2 07/30/16 08:11 97.9 99 18 142/92 97 Room Air Status: improved Disposition: HOME, SELF-CARE Condition: Stable Scripts Hydrocodone Bit/Acetaminophen 5-325* (NORCO 5-325*) 1 Each Tablet 1 TAB ORAL Q6H Y for For Pain, #20 TAB 0 Refills Prov: Adam Jacobs 07/30/16 Ondansetron* (ZOFRAN*) 4 Mg Tablet 4 MG ORAL Q6H Y for Nausea & Vomiting, #20 TAB Prov: Adam Jacobs 07/30/16 Famotidine (PEPCID) 20 Mg Tablet 20 MG ORAL BEDTIME, #7 TAB 0 Refills Prov: Adam Jacobs 07/30/16 Adam Jacobs Jul 30, 2016 08:26
[2016-07-30] MEDS ORDERED: ZOFRAN4 M3 ORAL (08:30)
[2016-07-30] MEDS ORDERED: Mylanta II UD 30ml ORAL ONE (08:30)
[2016-07-30] MEDS ORDERED: PEPCID20 MG ORAL (08:30)
[2016-07-30 08:41] VITALS: BP 142/92
[2016-07-30 08:55] LABS: BASOPHILS % (AUTO) 1.5 % (0.0-2.0); EOSINOPHILS % (AUTO) 10.6 % (0.0-3.0); LYMPHOCYTES % (AUTO) 15.5 % (20.0-45.0); MEAN CORPUSCULAR HGB CONC 33.1 G/DL (32.0-36.0); MEAN CORPUSCULAR VOLUME 97 FL (80-99); MEAN PLATELET VOLUME 7.5 FL (6.5-10.1); MONOCYTES % (AUTO) 8.4 % (1.0-10.0); PLATELET COUNT 285 K/UL (150-450); RED BLOOD COUNT 5.09 M/UL (4.70-6.10); RED CELL DISTRIBUTION WIDTH 12.1 % (11.6-14.8); WHITE BLOOD COUNT 9.6 K/UL (4.8-10.8)
[2016-07-30 09:04] LABS: INR 1.1 (0.9-1.1)
[2016-07-30 09:12] LABS: ALANINE AMINOTRANSFERASE 94 U/L (3-41); ALBUMIN/GLOBULIN RATIO 1.3 (1.0-2.7); ANION GAP 16 (5-15); ASPARTATE AMINO TRANSFERASE 107 U/L (5-40); CALCIUM 9.2 mg/dL (8.6-10.2); CARBON DIOXIDE 27 mEQ/L (20-30); CHLORIDE 97 mEQ/L (98-107); CREATININE 0.6 mg/dL (0.7-1.2); GLOMERULAR FILTRATION RATE > 60 mL/min (>60); HEMOLYSIS 8; LIPASE > 300 U/L (< 60); POTASSIUM 3.6 mEQ/L (3.4-4.9); SODIUM 140 mEQ/L (135-145); TOTAL PROTEIN 7.1 g/dL (6.6-8.7)
[2016-07-30] MEDS ORDERED: NORCO 5-325 TA1 EACH ORAL (09:21)
[2016-07-30 09:54] VITALS: BP 153/88
== END 2016-07-30 09:55 | disposition home or self-care (01) ==
LOC: EMR 08:42
DX: K85.90 Acute pancreatitis without necrosis or infection, unspecified (principal); F10.10 Alcohol abuse, uncomplicated; J45.909 Unspecified asthma, uncomplicated; F12.10 Cannabis abuse, uncomplicated
CPT/HCPCS: 36415; 80053; 83690; 85025; 85610; 85730; 96374; 96375; 99284; J2405

== ENCOUNTER 2016-10-03 23:56 | Emergency (ER) | payer MEDICAID ==
[~2016-10-03] VITALS: Ht 170.2 cm; Wt 72.6 kg
[~2016-10-03 23:56] MED LIST changes: +NORCO 5-325 TA1 EACH ORAL; +ZOFRAN4 M3 ORAL
[2016-10-04] MEDS ORDERED: NKM (00:07)
[2016-10-04 00:10] VITALS: BP 138/79
[2016-10-04] MEDS ORDERED: HYDROmorphone 1mg/ml Carpuject IVP ONE (00:30)
[2016-10-04 00:58] LABS: BASOPHILS % (AUTO) 1.7 % (0.0-2.0); EOSINOPHILS % (AUTO) 16.7 % (0.0-3.0); LYMPHOCYTES % (AUTO) 34.1 % (20.0-45.0); MEAN CORPUSCULAR HEMOGLOBIN 33.9 PG (27.0-31.0); MEAN CORPUSCULAR HGB CONC 36.4 G/DL (32.0-36.0); MEAN CORPUSCULAR VOLUME 93 FL (80-99); MEAN PLATELET VOLUME 7.5 FL (6.5-10.1); MONOCYTES % (AUTO) 9.2 % (1.0-10.0); NEUTROPHILS % (AUTO) 38.3 % (45.0-75.0); PLATELET COUNT 354 K/UL (150-450); RED BLOOD COUNT 4.07 M/UL (4.70-6.10); RED CELL DISTRIBUTION WIDTH 11.2 % (11.6-14.8); WHITE BLOOD COUNT 7.4 K/UL (4.8-10.8)
[2016-10-04 01:18] LABS: ALANINE AMINOTRANSFERASE 33 U/L (3-41); ALBUMIN/GLOBULIN RATIO 1.4 (1.0-2.7); ANION GAP 15 (5-15); ASPARTATE AMINO TRANSFERASE 58 U/L (5-40); CARBON DIOXIDE 28 mEQ/L (20-30); CHLORIDE 100 mEQ/L (98-107); CREATININE 0.7 mg/dL (0.7-1.2); GLOMERULAR FILTRATION RATE > 60 mL/min (>60); HEMOLYSIS 10; LIPASE 37 U/L (< 60); POTASSIUM 3.3 mEQ/L (3.4-4.9); SODIUM 143 mEQ/L (135-145); TOTAL PROTEIN 6.6 g/dL (6.6-8.7)
[2016-10-04] MEDS ORDERED: PRILOSEC OTC20 MG ORAL (01:32)
--- NOTE | 2016-10-04 01:32 | Emergency Room Report ---
History of Present Illness General Chief Complaint: Abdominal Pain Source: Patient Present Illness HPI Is a 20-year-old male with a history of necrotizing some alcohol. He presents with chief complaint epigastric pain after drinking alcohol. Has vomiting but no diarrhea. No fever or chills. Pain is 10 out of 10 pain. No radiation. Nothing made it better nothing made it worse. Denies any other complaint. Allergies: Coded Allergies: NO KNOWN ALLERGIES (Unverified Allergy, Unknown, 10/29/15) Patient History Past Medical History: see triage record, old chart reviewed Past Surgical History: none Pertinent Family History: none Social History: Reports: alcohol use Immunizations: other Reviewed Nursing Documentation: PMH: Agreed, PSxH: Agreed Nursing Documentation-PMH Hx Asthma: Yes Hx Cancer: No Hx Gastrointestinal Problems: Yes - pancreatitis Hx Neurological Problems: No Review of Systems Eye: Denies: blurred vision, eye pain ENT: Denies: ear pain, nose congestion, throat swelling Respiratory: Denies: cough, shortness of breath Cardiovascular: Denies: chest pain, palpitations Gastrointestinal: Reports: abdominal pain, nausea, Denies: diarrhea, vomiting Musculoskeletal: Denies: back pain, joint pain Skin: Denies: rash Neurological: Denies: headache, numbness Endocrine: Denies: increased thirst, increased urine Hematologic/Lymphatic: Denies: easy bruising All Other Systems: negative except mentioned in HPI Physical Exam Vital Signs Date Time Temp Pulse Resp B/P Pulse Ox O2 Delivery O2 Flow Rate FiO2 10/04/16 00:03 97.7 94 18 138/79 96 Room Air vitals normal Sp02 EP Interpretation: reviewed, normal General Appearance: well appearing, no apparent distress, alert Head: normocephalic, atraumatic Eyes: bilateral eye EOMI, bilateral eye PERRL ENT: hearing grossly normal, normal pharynx Neck: full range of motion, supple, no meningismus Respiratory: chest non-tender, lungs clear, normal breath sounds Cardiovascular #1: regular rate, rhythm, no murmur Gastrointestinal: normal bowel sounds, no mass, no organomegaly, no bruit, non- distended, tenderness - Epigastric Musculoskeletal: back normal, gait/station normal, normal range of motion Psychiatric: mood/affect normal Skin: warm/dry Medical Decision Making Diagnostic Impression: Primary Impression: Abdominal pain Qualified Codes: R10.13 - Epigastric pain Additional Impressions: Alcoholic gastritis without bleeding Qualified Codes: K29.20 - Alcoholic gastritis without bleeding ETOH abuse ER Course Patient presents with alcohol abuse and epigastric pain. He is pain-free now. No evidence of pancreatitis. No evidence of obstruction. We'll discharge home. Lab Results Impression labs are normal Last Vital Signs Date Time Temp Pulse Resp B/P Pulse Ox O2 Delivery O2 Flow Rate FiO2 10/04/16 00:10 97.7 87 18 138/79 96 Room Air Status: improved Disposition: HOME, SELF-CARE Condition: Stable Scripts Omeprazole Magnesium (PRILOSEC OTC) 20 Mg Tablet. 20 MG ORAL DAILY, #30 TAB Prov: NY DILL M.D. 10/04/16 Referrals: [facility],REFERRING (PCP) Patient Instructions: Gastritis, Adult Additional Instructions: Stop drinking alcohol. Followup with your DrJesenia in 7 days. Return if worse. NY DILL M.D. Oct 04, 2016 01:32
[2016-10-04 01:53] VITALS: BP 139/80
== END 2016-10-04 01:53 | disposition home or self-care (01) ==
LOC: EMR 10-04 00:35
DX: K29.20 Alcoholic gastritis without bleeding (principal); J45.909 Unspecified asthma, uncomplicated; Z87.19 Personal history of other diseases of the digestive system; F10.10 Alcohol abuse, uncomplicated
CPT/HCPCS: 36415; 80053; 83690; 85025; 96360; 96374; 96375; 99284; J1170; J2405

== ENCOUNTER 2016-12-04 00:08 | Emergency (ER) | payer MEDICAID ==
[~2016-12-04] VITALS: Ht 170.2 cm; Wt 72.6 kg
[~2016-12-04 00:08] MED LIST changes: +PRILOSEC OTC20 MG ORAL
--- NOTE | 2016-12-04 00:34 | Emergency Room Report ---
History of Present Illness General Chief Complaint: Abdominal Pain Source: Patient, Medical Record Present Illness HPI Is a 21-year-old male with a history of pancreatitis secondary to alcohol. He said he hasn't had a drink over several weeks. He presents with abdominal pain over the epigastric area. This occur after drinking his movie. No fever or chills. No nausea no vomiting. Pain is 9/10. Similar pain in the past. No diarrhea. Denies any other complaint. Allergies: Coded Allergies: NO KNOWN ALLERGIES (Unverified Allergy, Unknown, 10/29/15) Patient History Past Medical History: see triage record, old chart reviewed Past Surgical History: none Pertinent Family History: none Social History: Reports: alcohol use - History Immunizations: other Reviewed Nursing Documentation: PMH: Agreed, PSxH: Agreed Nursing Documentation-PM Past Medical History: No History, Except For Hx Asthma: Yes Hx Cancer: No Hx Gastrointestinal Problems: Yes - pancreatitis Hx Neurological Problems: No Review of Systems Eye: Denies: blurred vision, eye pain ENT: Denies: ear pain, nose congestion, throat swelling Respiratory: Denies: cough, shortness of breath Cardiovascular: Denies: chest pain, palpitations Gastrointestinal: Reports: abdominal pain, Denies: diarrhea, nausea, vomiting Musculoskeletal: Denies: back pain, joint pain Skin: Denies: rash Neurological: Denies: headache, numbness Endocrine: Denies: increased thirst, increased urine Hematologic/Lymphatic: Denies: easy bruising All Other Systems: negative except mentioned in HPI Physical Exam Vital Signs Date Time Temp Pulse Resp B/P Pulse Ox O2 Delivery O2 Flow Rate FiO2 12/04/16 00:21 98.8 78 18 132/84 97 Room Air vitals normal Sp02 EP Interpretation: reviewed, normal General Appearance: well appearing, no apparent distress, alert Head: normocephalic, atraumatic Eyes: bilateral eye EOMI, bilateral eye PERRL ENT: hearing grossly normal, normal pharynx Neck: full range of motion, supple, no meningismus Respiratory: chest non-tender, lungs clear, normal breath sounds Cardiovascular #1: regular rate, rhythm, no murmur Gastrointestinal: normal bowel sounds, no mass, no organomegaly, no bruit, non- distended, tenderness - Epigastric Musculoskeletal: back normal, gait/station normal, normal range of motion Psychiatric: mood/affect normal Skin: warm/dry Medical Decision Making Diagnostic Impression: Primary Impression: Acute pancreatitis without infection or necrosis Qualified Codes: K85.90 - Acute pancreatitis without necrosis or infection, unspecified ER Course Patient presents with abdominal pain and has acute pancreatitis. No evidence of perforation. Pain is better controlled now. Denies any alcohol use recently. Will admit. I contacted Dr. Stevenson for admission. Lab Results Impression labs with elevated lipase Last Vital Signs Date Time Temp Pulse Resp B/P Pulse Ox O2 Delivery O2 Flow Rate FiO2 12/04/16 00:21 98.8 78 18 132/84 97 Room Air Status: improved Disposition: ADMITTED INPATIENT Condition: Serious NY DILL M.D. Dec 04, 2016 00:34
[2016-12-04] MEDS ORDERED: HYDROmorphone 1mg/ml Carpuject IVP ONE (00:45)
[2016-12-04] MEDS ORDERED: Famotidine 20 MG/ 2ML VIAL IVP ONE (00:45)
[2016-12-04 00:56] VITALS: BP 126/87
[2016-12-04 01:28] LABS: BASOPHILS % (AUTO) 1.1 % (0.0-2.0); EOSINOPHILS % (AUTO) 2.6 % (0.0-3.0); LYMPHOCYTES % (AUTO) 29.1 % (20.0-45.0); MEAN CORPUSCULAR HEMOGLOBIN 32.7 PG (27.0-31.0); MEAN CORPUSCULAR HGB CONC 34.6 G/DL (32.0-36.0); MEAN CORPUSCULAR VOLUME 94 FL (80-99); MEAN PLATELET VOLUME 7.2 FL (6.5-10.1); MONOCYTES % (AUTO) 9.3 % (1.0-10.0); NEUTROPHILS % (AUTO) 57.9 % (45.0-75.0); PLATELET COUNT 303 K/UL (150-450); RED BLOOD COUNT 4.86 M/UL (4.70-6.10); RED CELL DISTRIBUTION WIDTH 11.4 % (11.6-14.8); WHITE BLOOD COUNT 11.4 K/UL (4.8-10.8)
[2016-12-04 01:42] LABS: ALANINE AMINOTRANSFERASE 28 U/L (3-41); ALBUMIN/GLOBULIN RATIO 1.3 (1.0-2.7); ALCOHOL < 10 mg/dL; ANION GAP 12 (5-15); ASPARTATE AMINO TRANSFERASE 25 U/L (5-40); CALCIUM 9.7 mg/dL (8.6-10.2); CARBON DIOXIDE 27 mEQ/L (20-30); CHLORIDE 100 mEQ/L (98-107); CREATININE 0.6 mg/dL (0.7-1.2); GLOMERULAR FILTRATION RATE > 60 mL/min (>60); HEMOLYSIS 8; POTASSIUM 4.2 mEQ/L (3.4-4.9); SODIUM 139 mEQ/L (135-145); TOTAL PROTEIN 7.4 g/dL (6.6-8.7)
[2016-12-04 01:43] LABS: APPEARANCE,URINE CLEAR; KETONES,URINE NEGATIVE (NEGATIVE); LEUKOCYTE ESTERASE ,URINE NEGATIVE (NEGATIVE); NITRITE,URINE NEGATIVE (NEGATIVE); PH,URINE 8 (4.5-8.0); PROTEIN,URINE NEGATIVE (NEGATIVE); UROBILINOGEN,URINE NORMAL MG/DL (0.0-1.0)
[2016-12-04 01:54] LABS: LIPASE 2149 U/L (< 60)
[2016-12-04 02:57] VITALS: BP 126/87
== END 2016-12-04 02:58 | disposition left against medical advice (07) ==
LOC: EMR 00:15 → EDBEDREQ 02:56 → EMR 02:58
DX: K85.90 Acute pancreatitis without necrosis or infection, unspecified (principal); J45.909 Unspecified asthma, uncomplicated
CPT/HCPCS: 36415; 80053; 80329; 81003; 83690; 85025; 96361; 96374; 96375; 99284; J1170; J2405; S0028

== ENCOUNTER 2017-12-24 17:32 | Emergency (ER) | payer SELFPAY ==
[~2017-12-24] VITALS: Ht 167.6 cm; Wt 72.6 kg
[~2017-12-24 17:32] MED LIST changes: +BACITRACIN15 GM TOPIC; +TYLENOL325 MG ORAL
[2017-12-24 17:48] VITALS: BP 145/83
--- NOTE | 2017-12-24 18:18 | Emergency Room Report ---
History of Present Illness General Chief Complaint: Wound Recheck/Suture Removal Source: Patient Present Illness HPI Pt. presents to the ED c/o Sutures in the left palm that need to be removed s/p wound closure. Denies erythema, pain , d/c , fevers or chills. Pt. states he is UTD with tetanus. Allergies: Coded Allergies: NO KNOWN ALLERGIES (Unverified Allergy, Unknown, 10/29/15) Patient History Past Medical History: see triage record Past Surgical History: none Pertinent Family History: none Immunizations: UTD Reviewed Nursing Documentation: PMH: Agreed; PSxH: Agreed Nursing Documentation-PMH Past Medical History: No History, Except For Hx Asthma: Yes Hx Cancer: No Hx Gastrointestinal Problems: Yes - pancreatitis Hx Neurological Problems: No Review of Systems All Other Systems: negative except mentioned in HPI Physical Exam Vital Signs Date Time Temp Pulse Resp B/P (MAP) Pulse Ox O2 Delivery O2 Flow Rate FiO2 12/24/17 17:45 97.9 94 16 145/83 97 Room Air 97.9 Sp02 EP Interpretation: reviewed, normal General Appearance: no apparent distress, alert, GCS 15, non-toxic Head: normocephalic, atraumatic ENT: hearing grossly normal, normal voice Neck: full range of motion Respiratory: lungs clear, normal breath sounds, speaking full sentences Cardiovascular #1: regular rate, rhythm, normal capillary refill Musculoskeletal: back normal, gait/station normal, normal range of motion, non- tender Neurologic: alert, oriented x3, responsive, motor strength/tone normal, sensory intact, speech normal, grossly normal Psychiatric: judgement/insight normal Skin: normal color, no rash, warm/dry, well hydrated, wd healing/no infection noted - left palm Medical Decision Making PA Attestation Dr. Curtis is my supervising Physician whom patient management has been discussed with. Diagnostic Impression: Primary Impression: Encounter for removal of sutures ER Course Pt. presents to the ED c/o Sutures in the left palm that need to be removed s/p wound closure. Denies erythema, pain , d/c , fevers or chills. Pt. states he is UTD with tetanus. Ddx considered but are not limited to laceration, tendon injury, cellulitis, dehiscence. Vital signs: are WNL, pt. is afebrile H&PE are most consistent with: healed laceration of the Left palm ORDERS: none required at this time, the diagnosis is clinical ED INTERVENTIONS: - All Sutures removed. DISCHARGE: At this time pt. is stable for d/c to home. Will provide printed patient care instructions, and any necessary prescriptions. Care plan and follow up instructions have been discussed with the patient prior to discharge. Last Vital Signs Date Time Temp Pulse Resp B/P (MAP) Pulse Ox O2 Delivery O2 Flow Rate FiO2 12/24/17 17:48 97.9 87 16 145/83 97 Room Air 97.9 Disposition: HOME, SELF-CARE Condition: Stable Patient Instructions: Wound Closure Removal Additional Instructions: Take any previously prescribed medications as directed. Follow up with a Primary Care Provider in 3-5 days, even if your symptoms have resolved. Return sooner to ED if new symptoms occur, or current symptoms become worse. - Please note that this Emergency Department Report was dictated using HeyKikipediatric speech therapist technology software, occasionally this can lead to erroneous entry secondary to interpretation by the dictation equipment. Sharda Khalil Dec 24, 2017 18:18
[2017-12-24 18:26] VITALS: BP 145/83
== END 2017-12-24 18:30 | disposition home or self-care (01) ==
LOC: EMR 18:28
DX: Z48.02 Encounter for removal of sutures (principal); Z48.817 Encounter for surgical aftercare following surgery on the skin and subcutaneous tissue
CPT/HCPCS: 99282

== ENCOUNTER 2018-01-08 19:18 | Emergency (ER) | payer SELFPAY ==
[~2018-01-08] VITALS: Ht 167.6 cm; Wt 72.6 kg
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
[2018-01-08] MEDS ORDERED: Haloperidol 5mg/ml Inj IM ONE (19:45)
[2018-01-08] MEDS ORDERED: Morphine Sulfate 4mg/ml Inj (IV USE ONLY) IVP ONE (19:45)
[2018-01-08 20:00] VITALS: BP 155/83
[2018-01-08] MEDS ORDERED: CRANBERRY CONC1 EAC1 PO (20:05)
[2018-01-08] MEDS ORDERED: PROAIR HFA8.5 GM INH (20:05)
[2018-01-08] MEDS ORDERED: HYDROCORTISONE30 G2 TP (20:05)
[2018-01-08] MEDS ORDERED: TRIAMCINOLONE A15 G1 TP (20:05)
[2018-01-08 20:31] LABS: BASOPHILS % (AUTO) 0.7 % (0.0-2.0); EOSINOPHILS % (AUTO) 1.2 % (0.0-3.0); HEMATOCRIT 48.3 % (42.0-52.0); HEMOGLOBIN 16.9 G/DL (14.2-18.0); LYMPHOCYTES % (AUTO) 15.3 % (20.0-45.0); MEAN CORPUSCULAR VOLUME 89 FL (80-99); MONOCYTES % (AUTO) 5.5 % (1.0-10.0); NEUTROPHILS % (AUTO) 77.2 % (45.0-75.0); PLATELET COUNT 377 K/UL (150-450); RED BLOOD COUNT 5.41 M/UL (4.70-6.10); RED CELL DISTRIBUTION WIDTH 11.8 % (11.6-14.8); WHITE BLOOD COUNT 11.4 K/UL (4.8-10.8)
[2018-01-08 20:47] LABS: ANION GAP 12 mmol/L (5-15); BLOOD UREA NITROGEN 10 mg/dL (7-18); CALCIUM 9.5 MG/DL (8.5-10.1); CARBON DIOXIDE 27 MMOL/L (21-32); CHLORIDE 97 MMOL/L (98-107); CREATININE 0.8 MG/DL (0.55-1.30); SODIUM 135 MMOL/L (136-145)
[2018-01-08 20:50] LABS: ALANINE AMINOTRANSFERASE 80 U/L (12-78); ALBUMIN 4.1 G/DL (3.4-5.0); ALKALINE PHOSPHATASE 90 U/L (46-116); ASPARTATE AMINO TRANSFERASE 113 U/L (15-37); BILIRUBIN,TOTAL 0.9 MG/DL (0.2-1.0)
[2018-01-08 21:30] VITALS: BP 131/94
[2018-01-08 21:37] VITALS: BP 155/83
[2018-01-08] MEDS ORDERED: Morphine Sulfate 4mg/ml Inj (IV USE ONLY) IVP PRN (21:45)
[2018-01-08] MEDS ORDERED: Zolpidem 5mg tab ORAL PRN (21:45)
[2018-01-08] MEDS ORDERED: Morphine Sulfate 2mg/ml Inj IVP PRN (21:45)
[2018-01-08] MEDS ORDERED: Albuterol ud Inhalation HHN PRN (21:45)
[2018-01-08] MEDS ORDERED: LORazepam 1mg tab ORAL PRN (21:45)
[2018-01-08] MEDS ORDERED: D5 1/2NS w/KCl 40meq 1000ml 1,000 ML IV SCH (22:34)
[2018-01-09] MEDS ORDERED: Heparin 5000 units/ml inj SUBQ SCH (09:00)
--- NOTE | 2018-01-09 09:50 | Diagnostic Imaging Report ---
Indication: Abdominal pain Technique: Continuous helical transaxial imaging of the abdomen and pelvis was obtained from the lung bases to the pubic symphysis. No intravenous contrast was administered. Coronal 2-D reformats were also obtained. Automatic Exposure Control was utilized. Total Dose length Product (DLP): 536.[address] Dose Index Volume (CTDIvol): 10.38 mGy Comparison: none Findings: There is minimal atelectasis at the left lung base. The liver is hypodense consistent with fatty infiltration. There is a moderate degree of the peripancreatic soft tissues stranding consistent with acute pancreatitis. In the region of the head of the pancreas there is a bilobed cystic structure which may be a pseudocyst measuring approximately 5 x 3.5 cm on transaxial images. There is a thickening of the wall of the duodenum adjacent to the pseudocyst and the area pancreatitis. There is a small amount of ascites probably related to pancreatitis. There is no evidence of bowel obstruction. The appendix is identified appears normal. No hydronephrosis or renal stones are seen. IMPRESSION: Acute pancreatitis. 5 x 3.5 cm bilobed cystic structure in the region of the pancreatic head likely pseudocyst given the pancreatitis. Fatty liver [facility] has communicated the preliminary results to the Emergency Department. Their findings are largely concordant with this report. The CT scanner at [facility] is accredited by the [employer] and the scans are performed using dose optimization techniques as appropriate to a performed exam including Automatic Exposure control.
== END 2018-01-08 21:35 | disposition other institution (70) ==
LOC: EMR 19:59 → UNDOADMIN 20:18 → 4E 20:18 → EDBEDREQ 20:53 → CANBEDREQ 21:32 → EMR 21:35
DX: K85.90 Acute pancreatitis without necrosis or infection, unspecified (principal); K76.0 Fatty (change of) liver, not elsewhere classified; J45.909 Unspecified asthma, uncomplicated
CPT/HCPCS: 36415; 74176; 80053; 83690; 85025; 99285; J1630; J2270; S0028

== ENCOUNTER 2018-10-22 00:59 | Inpatient (IN) | payer MEDICAID ==
[~2018-10-22] VITALS: Ht 167.6 cm; Wt 72.1 kg
[2018-10-22] VITALS (9 sets, daily range): BP systolic 134–156; BP diastolic 82–106
[~2018-10-22 00:59] MED LIST changes: +CRANBERRY CONC1 EAC1 PO; +HYDROCORTISONE30 G2 TP; +PROAIR HFA8.5 GM INH; +TRIAMCINOLONE A15 G1 TP
[2018-10-22] MEDS ORDERED: NKM (01:13)
--- NOTE | 2018-10-22 01:14 | NUR ---
ED Nurse Note: RUQ pain since yesterday. Hx of Pancreatitis. 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 Pt is AO x 4times, VSS, on room air no distress, current vomiting and c/o pain. DANIEL seen Pt at bedside.
[2018-10-22] MEDS ORDERED: Morphine Sulfate 4mg/ml Inj (IV USE ONLY) IVP ONE ×2 (01:30→04:30)
--- NOTE | 2018-10-22 01:30 | NUR ---
ED Nurse Note: Blood sample sent to lab.
[2018-10-22 01:36] LABS: BASOPHILS % (AUTO) 1.1 % (0.0-2.0); EOSINOPHILS % (AUTO) 0.7 % (0.0-3.0); HEMATOCRIT 52.4 % (42.0-52.0); HEMOGLOBIN 17.9 G/DL (14.2-18.0); LYMPHOCYTES % (AUTO) 20.6 % (20.0-45.0); MEAN CORPUSCULAR VOLUME 92 FL (80-99); MONOCYTES % (AUTO) 5.2 % (1.0-10.0); NEUTROPHILS % (AUTO) 72.5 % (45.0-75.0); PLATELET COUNT 359 K/UL (150-450); RED BLOOD COUNT 5.68 M/UL (4.70-6.10); RED CELL DISTRIBUTION WIDTH 10.9 % (11.6-14.8); WHITE BLOOD COUNT 13.4 K/UL (4.8-10.8)
[2018-10-22 01:50] LABS: ANION GAP 16 mmol/L (5-15); BLOOD UREA NITROGEN 13 mg/dL (7-18); CALCIUM 9.6 MG/DL (8.5-10.1); CARBON DIOXIDE 25 MMOL/L (21-32); CHLORIDE 97 MMOL/L (98-107); CREATININE 0.9 MG/DL (0.55-1.30); POTASSIUM 3.5 MMOL/L (3.5-5.1); SODIUM 138 MMOL/L (136-145)
[2018-10-22 01:54] LABS: ALANINE AMINOTRANSFERASE 78 U/L (12-78); ALBUMIN/GLOBULIN RATIO 1.4 (1.0-2.7); ALKALINE PHOSPHATASE 93 U/L (46-116); ASPARTATE AMINO TRANSFERASE 119 U/L (15-37); BILIRUBIN,TOTAL 0.7 MG/DL (0.2-1.0)
--- NOTE | 2018-10-22 02:45 | NUR ---
ED Nurse Note: Pt asleep when visited, VSS.
[2018-10-22] MEDS ORDERED: LORazepam Inj 2mg/ml 1ml IV ONE (03:00)
[2018-10-22] MEDS: D5 1/2NS w/KCl 20mEq 1,000 ML IV SCH ×2 (03:20→04:34)
--- NOTE | 2018-10-22 04:38 | Emergency Room Report ---
History of Present Illness General Chief Complaint: Abdominal Pain Source: Patient Present Illness HPI Patient is a 22-year-old male who presents after increased right-sided abdominal pain. Patient a prior history of pancreatitis in the past. He reports having prior CT imaging. Patient states he is an alcoholic and drinks daily. He states he usually drinks 1/5 of vodka a day. He denies any hematemesis. He reports having severe pain which radiates to his back 10 out of 10. He had multiple episodes of nonbilious nonbloody emesis. He had a similar symptoms in the past. He states that he drinks daily. He reports having last alcohol use 9 PM. Allergies: Coded Allergies: NO KNOWN ALLERGIES (Unverified Allergy, Unknown, 10/29/15) Patient History Past Medical History: see triage record Reviewed Nursing Documentation: PMH: Agreed; PSxH: Agreed Nursing Documentation-PMH Hx Asthma: Yes Hx Cancer: No Hx Gastrointestinal Problems: Yes - Pancreatitis History Of Psychiatric Problem: Yes - Alcohol Abuse Hx Neurological Problems: No Review of Systems All Other Systems: negative except mentioned in HPI Physical Exam Vital Signs Date Time Temp Pulse Resp B/P (MAP) Pulse Ox O2 Delivery O2 Flow Rate FiO2 10/22/18 01:09 97.5 118 20 136/93 (107) 99 Room Air Sp02 EP Interpretation: reviewed, normal General Appearance: normal inspection, well appearing, no apparent distress, alert, GCS 15, non-toxic Head: atraumatic ENT: normal ENT inspection, hearing grossly normal, normal voice Neck: normal inspection, full range of motion, supple, no bony tend Respiratory: normal inspection, lungs clear, normal breath sounds, no respiratory distress, no retraction, no wheezing Cardiovascular #1: regular rate, rhythm, no edema Gastrointestinal: normal inspection, normal bowel sounds, non tender, soft, no guarding, no hernia Genitourinary: no CVA tenderness Musculoskeletal: normal inspection, back normal, normal range of motion Neurologic: normal inspection, alert, responsive, speech normal Psychiatric: normal inspection, judgement/insight normal, mood/affect normal Medical Decision Making Diagnostic Impression: Primary Impression: Acute pancreatitis without infection or necrosis ER Course Patient presented for abdominal pain. Differential diagnoses included ischemic bowel, appendicitis, perforated viscus, abdominal aortic aneurysm, inferior myocardial infarction, viral gastroenteritis among others. Because of complexity of patient's case laboratory testing and imaging studies were ordered. Laboratory testing was notable for pancreatitis. Patient's symptoms were noted to be consistent with his prior history of pancreatitis. Patient was noted to be normotensive and has elevated white blood count. Patient started on IV fluids as well as IV pain medications. He was noted to have some improvement. Dr. Patti Zuniga was contacted for inpatient management due to panel physician Labs Test 10/22/18 01:25 White Blood Count 13.4 K/UL (4.8-10.8) Red Blood Count 5.68 M/UL (4.70-6.10) Hemoglobin 17.9 G/DL (14.2-18.0) Hematocrit 52.4 % (42.0-52.0) Mean Corpuscular Volume 92 FL (80-99) Mean Corpuscular Hemoglobin 31.4 PG (27.0-31.0) Mean Corpuscular Hemoglobin Concent 34.1 G/DL (32.0-36.0) Red Cell Distribution Width 10.9 % (11.6-14.8) Platelet Count 359 K/UL (150-450) Mean Platelet Volume 6.1 FL (6.5-10.1) Neutrophils (%) (Auto) 72.5 % (45.0-75.0) Lymphocytes (%) (Auto) 20.6 % (20.0-45.0) Monocytes (%) (Auto) 5.2 % (1.0-10.0) Eosinophils (%) (Auto) 0.7 % (0.0-3.0) Basophils (%) (Auto) 1.1 % (0.0-2.0) Sodium Level 138 MMOL/L (136-145) Potassium Level 3.5 MMOL/L (3.5-5.1) Chloride Level 97 MMOL/L (98-107) Carbon Dioxide Level 25 MMOL/L (21-32) Anion Gap 16 mmol/L (5-15) Blood Urea Nitrogen 13 mg/dL (7-18) Creatinine 0.9 MG/DL (0.55-1.30) Estimat Glomerular Filtration Rate > 60 mL/min (>60) Glucose Level 129 MG/DL (74-106) Calcium Level 9.6 MG/DL (8.5-10.1) Total Bilirubin 0.7 MG/DL (0.2-1.0) Aspartate Amino Transf (AST/SGOT) 119 U/L (15-37) Alanine Aminotransferase (ALT/SGPT) 78 U/L (12-78) Alkaline Phosphatase 93 U/L (46-116) Total Protein 8.6 G/DL (6.4-8.2) Albumin 5.0 G/DL (3.4-5.0) Globulin 3.6 g/dL Albumin/Globulin Ratio 1.4 (1.0-2.7) Lipase 894 U/L (73-393) Last Vital Signs Date Time Temp Pulse Resp B/P (MAP) Pulse Ox O2 Delivery O2 Flow Rate FiO2 10/22/18 04:00 93 16 147/84 100 Room Air 10/22/18 01:09 97.5 Status: improved Disposition: ADMITTED INPATIENT Condition: Stable Referrals: NOT CHOSEN IPA/,REFERRING (PCP) Adam Jacobs MD Oct 22, 2018 04:37
--- NOTE | 2018-10-22 05:30 | NUR ---
ED Nurse Note: Report given to ANNIKA Whitaker. Pt is AO x 4times, VSS, on room air no distress. Pt will admit to 3E after 6:30am.
--- NOTE | 2018-10-22 06:00 | NUR ---
ED Nurse Note: Urine sent to lab.
[2018-10-22 06:33] LABS: APPEARANCE,URINE CLEAR; BILIRUBIN, URINE NEGATIVE (NEGATIVE); COLOR,URINE PALE YELLOW; GLUCOSE, URINE (UA) 3+ (NEGATIVE); KETONES,URINE 4+ (NEGATIVE); LEUKOCYTE ESTERASE ,URINE NEGATIVE (NEGATIVE); NITRITE,URINE NEGATIVE (NEGATIVE); PH,URINE 6 (4.5-8.0); PROTEIN,URINE 2+ (NEGATIVE); UROBILINOGEN,URINE NORMAL MG/DL (0.0-1.0)
--- NOTE | 2018-10-22 06:45 | NUR ---
NURSE NOTES: Received pt from Alexa via [employer], pt is AOx4, denies any pain at this time, no distress noted. Vitals taken. Will endorse to next nurse.
--- NOTE | 2018-10-22 07:30 | NUR ---
HAND-OFF: Report given to ANNIKA Sheets. Pt in stable condition.
--- NOTE | 2018-10-22 07:45 | NUR ---
NURSE NOTES: Received report from Sherman ROBLERO. Patient is awake alert and oriented x4, no acute distress noted, but patient is reporting pain rated 9/10 in RUQ. Per report, patient was brought up just before shift change, admission profile/assessment not done, MD not called for orders yet, will complete admission information and call MD. IV intact, asymptomatic. Patient updated on plan of care. Side rails upx2, bed low and locked, call light in reach. Will continue to monitor.
--- NOTE | 2018-10-22 09:00 | Consultation ---
History of Present Illness General Date patient seen: Oct 22, 2018 Chief Complaint: Present Illness Allergies: Coded Allergies: NO KNOWN ALLERGIES (Unverified Allergy, Unknown, 10/29/15) Medication History Scheduled Triamcinolone Acetonide (Triamcinolone Acetonide), 15 GM TP DAILY, (Reported) Patient History Healthcare decision maker Resuscitation status Advanced Directive on File Physical Exam Last 24 Hour Vital Signs Date Time Temp Pulse Resp B/P (MAP) Pulse Ox O2 Delivery O2 Flow Rate FiO2 10/22/18 08:00 97.5 81 20 152/106 (121) 97 10/22/18 06:45 98.4 93 20 149/100 (116) 99 10/22/18 06:33 97.8 89 17 134/82 100 Room Air 10/22/18 06:00 97.8 89 17 134/82 100 Room Air 10/22/18 04:00 93 16 147/84 100 Room Air 10/22/18 02:45 98.3 77 18 146/82 98 Room Air 10/22/18 01:15 112 20 Room Air 10/22/18 01:14 98.5 82 16 156/96 99 Room Air 10/22/18 01:09 97.5 118 20 136/93 (107) 99 Room Air Laboratory Tests Test 10/22/18 01:25 10/22/18 06:00 White Blood Count 13.4 K/UL (4.8-10.8) H Red Blood Count 5.68 M/UL (4.70-6.10) Hemoglobin 17.9 G/DL (14.2-18.0) Hematocrit 52.4 % (42.0-52.0) H Mean Corpuscular Volume 92 FL (80-99) Mean Corpuscular Hemoglobin 31.4 PG (27.0-31.0) H Mean Corpuscular Hemoglobin Concent 34.1 G/DL (32.0-36.0) Red Cell Distribution Width 10.9 % (11.6-14.8) L Platelet Count 359 K/UL (150-450) Mean Platelet Volume 6.1 FL (6.5-10.1) L Neutrophils (%) (Auto) 72.5 % (45.0-75.0) Lymphocytes (%) (Auto) 20.6 % (20.0-45.0) Monocytes (%) (Auto) 5.2 % (1.0-10.0) Eosinophils (%) (Auto) 0.7 % (0.0-3.0) Basophils (%) (Auto) 1.1 % (0.0-2.0) Sodium Level 138 MMOL/L (136-145) Potassium Level 3.5 MMOL/L (3.5-5.1) Chloride Level 97 MMOL/L (98-107) L Carbon Dioxide Level 25 MMOL/L (21-32) Anion Gap 16 mmol/L (5-15) H Blood Urea Nitrogen 13 mg/dL (7-18) Creatinine 0.9 MG/DL (0.55-1.30) Estimat Glomerular Filtration Rate > 60 mL/min (>60) Glucose Level 129 MG/DL (74-106) H Calcium Level 9.6 MG/DL (8.5-10.1) Total Bilirubin 0.7 MG/DL (0.2-1.0) Aspartate Amino Transf (AST/SGOT) 119 U/L (15-37) H Alanine Aminotransferase (ALT/SGPT) 78 U/L (12-78) Alkaline Phosphatase 93 U/L (46-116) Total Protein 8.6 G/DL (6.4-8.2) H Albumin 5.0 G/DL (3.4-5.0) Globulin 3.6 g/dL Albumin/Globulin Ratio 1.4 (1.0-2.7) Lipase 894 U/L (73-393) H Serum Alcohol 80 mg/dL Urine Color Pale yellow Urine Appearance Clear Urine pH 6 (4.5-8.0) Urine Specific [place] 1.025 (1.005-1.035) Urine Protein 2+ (NEGATIVE) H Urine Glucose (UA) 3+ (NEGATIVE) H Urine Ketones 4+ (NEGATIVE) H Urine Blood Negative (NEGATIVE) Urine Nitrite Negative (NEGATIVE) Urine Bilirubin Negative (NEGATIVE) Urine Urobilinogen Normal MG/DL (0.0-1.0) Urine Leukocyte Esterase Negative (NEGATIVE) Urine RBC 0 /HPF (0 - 0) Urine WBC 0-2 /HPF (0 - 0) Urine Squamous Epithelial Cells Occasional /LPF Urine Bacteria Occasional /HPF (NONE) Urine Mucus Many /LPF (NONE/OCC) H Height (Feet): 5 Height (Inches): 6.00 Weight (Pounds): 160 Medications Current Medications Medications (Trade) Dose Ordered Sig/Jesica Route PRN Reason Start Time Stop Time Status Last Admin Dose Admin Dextrose/ Electrolytes 1,000 ml @ 125 mls/hr Q8H IV 10/22/18 03:00 11/21/18 02:59 10/22/18 04:34 Assessment/Plan Assessment/Plan: (1) Abdominal pain (2) Acute pancreatitis seen dictated Martin Pérez Oct 22, 2018 09:00
--- NOTE | 2018-10-22 10:30 | NUR ---
NURSE NOTES: Admission orders received from Dr. Torrez by charge nurse Michelle.
--- NOTE | 2018-10-22 10:44 | GI Initial Consult Note ---
History of Present Illness General Date patient seen: Oct 22, 2018 Time patient seen: 10:40 Reason for Hospitalization: Abdominal Pain Referring physician: JEVON DOWNS Reason for Consultation: Alcoholic pancreatitis Present Illness HPI Patient is a 22-year-old male who presents after increased right-sided abdominal pain. Patient a prior history of pancreatitis in the past. He reports having prior CT imaging. Patient states he is an alcoholic and drinks daily. He states he usually drinks 1/5 of vodka a day. He denies any hematemesis. He reports having severe pain which radiates to his back 10 out of 10. He had multiple episodes of nonbilious nonbloody emesis. He had a similar symptoms in the past. He states that he drinks daily. He reports having last alcohol use 9 PM. GI consulted for alcoholic pancreatitis. Patient seen, awake alert and oriented x4 has reports of a severe abdominal pain. The patient has a history of alcoholic abuse, was admitted few years prior for similar condition. Patient denies any hematemesis or coffee grounds. Denies any hematochezia or melena. Patient reports drinking of approximately 1/5 of vodka versus priya a day. Patient presents today with a lipase level at 894. Has no history of endoscopic colonoscopy. Home Meds Reported Medications Triamcinolone Acetonide (TRIAMCINOLONE ACETONIDE) 15 Gm Cream..g., 15 GM TP DAILY 01/08/18 Med list reviewed/reconciled: Yes Allergies: Coded Allergies: NO KNOWN ALLERGIES (Unverified Allergy, Unknown, 10/29/15) Patient History History Provided By: Patient, Medical Record PMH Narrative Past Medical History: see triage record Reviewed Nursing Documentation: PMH: Agreed; PSxH: Agreed Nursing Documentation-PMH Hx Asthma: Yes Hx Cancer: No Hx Gastrointestinal Problems: Yes - Pancreatitis History Of Psychiatric Problem: Yes - Alcohol Abuse Hx Neurological Problems: No Social History: Reports: alcohol use Review of Systems All Other Systems: negative except mentioned in HPI Physical Exam Vital Signs Date Time Temp Pulse Resp B/P (MAP) Pulse Ox O2 Delivery O2 Flow Rate FiO2 10/22/18 01:09 97.5 118 20 136/93 (107) 99 Room Air Sp02 EP Interpretation: reviewed, normal Labs Laboratory Tests Test 10/22/18 01:25 10/22/18 06:00 White Blood Count 13.4 K/UL (4.8-10.8) H Red Blood Count 5.68 M/UL (4.70-6.10) Hemoglobin 17.9 G/DL (14.2-18.0) Hematocrit 52.4 % (42.0-52.0) H Mean Corpuscular Volume 92 FL (80-99) Mean Corpuscular Hemoglobin 31.4 PG (27.0-31.0) H Mean Corpuscular Hemoglobin Concent 34.1 G/DL (32.0-36.0) Red Cell Distribution Width 10.9 % (11.6-14.8) L Platelet Count 359 K/UL (150-450) Mean Platelet Volume 6.1 FL (6.5-10.1) L Neutrophils (%) (Auto) 72.5 % (45.0-75.0) Lymphocytes (%) (Auto) 20.6 % (20.0-45.0) Monocytes (%) (Auto) 5.2 % (1.0-10.0) Eosinophils (%) (Auto) 0.7 % (0.0-3.0) Basophils (%) (Auto) 1.1 % (0.0-2.0) Sodium Level 138 MMOL/L (136-145) Potassium Level 3.5 MMOL/L (3.5-5.1) Chloride Level 97 MMOL/L (98-107) L Carbon Dioxide Level 25 MMOL/L (21-32) Anion Gap 16 mmol/L (5-15) H Blood Urea Nitrogen 13 mg/dL (7-18) Creatinine 0.9 MG/DL (0.55-1.30) Estimat Glomerular Filtration Rate > 60 mL/min (>60) Glucose Level 129 MG/DL (74-106) H Calcium Level 9.6 MG/DL (8.5-10.1) Total Bilirubin 0.7 MG/DL (0.2-1.0) Aspartate Amino Transf (AST/SGOT) 119 U/L (15-37) H Alanine Aminotransferase (ALT/SGPT) 78 U/L (12-78) Alkaline Phosphatase 93 U/L (46-116) Total Protein 8.6 G/DL (6.4-8.2) H Albumin 5.0 G/DL (3.4-5.0) Globulin 3.6 g/dL Albumin/Globulin Ratio 1.4 (1.0-2.7) Lipase 894 U/L (73-393) H Serum Alcohol 80 mg/dL Urine Color Pale yellow Urine Appearance Clear Urine pH 6 (4.5-8.0) Urine Specific [place] 1.025 (1.005-1.035) Urine Protein 2+ (NEGATIVE) H Urine Glucose (UA) 3+ (NEGATIVE) H Urine Ketones 4+ (NEGATIVE) H Urine Blood Negative (NEGATIVE) Urine Nitrite Negative (NEGATIVE) Urine Bilirubin Negative (NEGATIVE) Urine Urobilinogen Normal MG/DL (0.0-1.0) Urine Leukocyte Esterase Negative (NEGATIVE) Urine RBC 0 /HPF (0 - 0) Urine WBC 0-2 /HPF (0 - 0) Urine Squamous Epithelial Cells Occasional /LPF Urine Bacteria Occasional /HPF (NONE) Urine Mucus Many /LPF (NONE/OCC) H General Appearance: well appearing, no apparent distress, alert Head: normocephalic EENT: PERRL/EOMI, normal ENT inspection Neck: supple Respiratory: normal breath sounds, no respiratory distress Cardiovascular: normal rate Gastrointestinal: normal inspection, non tender, soft, normal bowel sounds, non -distended Rectal: deferred Genitourinary: deferred Musculoskeletal: normal inspection, back normal Neurologic: normal inspection, alert, oriented x3, responsive Psychiatric: normal inspection, judgement/insight normal, memory normal Skin: normal inspection, normal color, no rash, warm/dry, palpation normal, well hydrated Lymphatic: normal inspection, no adenopathy Current Medications Current Medications Medications (Trade) Dose Ordered Sig/Jesica Route PRN Reason Start Time Stop Time Status Last Admin Dose Admin Dextrose/ Electrolytes 1,000 ml @ 125 mls/hr Q8H IV 10/22/18 03:00 11/21/18 02:59 10/22/18 04:34 Folic Acid (Folate) 1 mg DAILY ORAL 10/22/18 10:15 11/21/18 10:14 UNV Hydromorphone HCl (Dilaudid) 0.5 mg Q4H PRN IVP Severe Pain (Pain Scale 7-10) 10/22/18 09:00 10/29/18 08:59 Sodium Chloride 1,000 ml @ 75 mls/hr [id number] IV 10/22/18 10:15 11/21/18 10:14 UNV Thiamine HCl (Vitamin B1) 100 mg DAILY ORAL 10/22/18 10:15 11/21/18 10:14 UNV GI: Plan Problems: (1) Depression (2) Abdominal pain (3) ETOH abuse (4) Fatty liver Plan Alcoholic pancreatitis Elevated lipase level 894 Obtain urine toxicity Bowel rest, n.p.o. plus IV fluids Zofran as needed PPI Pain management Recommend psychiatric consult Follow labs Discussed with Dr. Cason. Thank you for this patient referral, we will follow. The patient was seen and examined at bedside and all new and available data was reviewed in the patients chart. I agree with the above findings, impression and plan. (Patient seen earlier today. Signature stamp does not reflect patient encounter time.). - MD Tierra CobianBanner [facility] CenterEve MISTRY Oct 22, 2018 10:44
[2018-10-22] MEDS ORDERED: Morphine Sulfate 2mg/ml Inj(IV/IM USE ONLY) IVP PRN (10:45)
[2018-10-22] MEDS: Thiamine 100mg tab ORAL SCH (10:50)
[2018-10-22] MEDS: Hydromorphone 0.5mg/0.5ml inj IVP PRN ×3 (10:51→20:05)
--- NOTE | 2018-10-22 14:17 | NUR ---
CASE MANAGEMENT:REVIEW 22 YR OLD MALE PRESENTED TO ER CC: RUQ ABDOMINAL PAIN SI: ALCOHOL PANCREATITIS 97.6 118 20 136/93 99% ON RA WBC+13.4 LIPASE+894 IS: IV ZOFRAN 500CC NS BOLUS IV PEPCID IV MORPHINE IV ATIVAN IVF+KCL : TO MED/SURG [facility]
--- NOTE | 2018-10-22 15:41 | NUR ---
NURSE NOTES: Called the office of Dr. Rodriguez and left message with results of urine toxicology screen. Awaiting callback. Will continue to monitor.
--- NOTE | 2018-10-22 15:49 | Consultation ---
Consult Note Consult Note asked to eval for high BP management Patient is a 22-year-old male who presents after increased right-sided abdominal pain. Patient a prior history of pancreatitis in the past. He reports having prior CT imaging. Patient states he is an alcoholic and drinks daily. He states he usually drinks 1/5 of vodka a day. He denies any hematemesis. He reports having severe pain which radiates to his back 10 out of 10. He had multiple episodes of nonbilious nonbloody emesis. He had a similar symptoms in the past. He states that he drinks daily. He reports having last alcohol use 9 PM. NO KNOWN ALLERGIES (Unverified Allergy, Unknown, 10/29/15) Hx Asthma: Yes Hx Gastrointestinal Problems: Yes - Pancreatitis History Of Psychiatric Problem: Yes - Alcohol Abuse Assessment/Plan Alcoholic pancreatitis Polysubstance abuse HTN BP management per orders Per Indio Umaña MD Oct 22, 2018 15:49
--- NOTE | 2018-10-22 19:47 | NUR ---
HAND-OFF: Report given to Jennifer ROBLERO. Patient is in stable condition.
--- NOTE | 2018-10-22 19:50 | NUR ---
NURSE NOTES: Receive a report from ANNIKA Sheets. Done rounds. Pt is asleep without complaint of pain. Will continue to monitor.
--- NOTE | 2018-10-22 21:00 | NUR ---
NURSE NOTES: Pt is awake and alert. Breathing is even and non labored. After pain medication for RUQ pain, pain relieved by 5/10. After 50ml greenish vomiting one time, no more vomiting/nausea noted. Done oral gargling. Explain to take medication for nausea sensation but pt refuses. Currently on therapeutic NPO with IV fluid hydration. Will continue to monitor.
--- NOTE | 2018-10-22 21:30 | Consultation ---
DATE OF CONSULTATION: 10/22/2018 PAIN MANAGEMENT CONSULTATION CONSULTING PHYSICIAN: Roslyn Ball M.D. REFERRING PHYSICIAN: Patti Torrez M.D. PHYSICIAN PRINTING TABLE WORKER: Aron Aguilar CHIEF COMPLAINT: Abdominal pain. HISTORY OF PRESENT ILLNESS: This is a 22-year-old male, who is being seen on the Med/Surg floor of [facility] for initial pain management consultation. The patient has been having abdominal pain for the past 2 days. It is constant, acute pain, rating at 10/10. The patient is having pain at this time. Increases with eating and reduced with medication. He was given morphine 4 mg IV in the ER with no pain relief. Found to have severe pancreatitis due to alcohol abuse. Due to this, we were consulted so that the patient would have adequate pain control here in the hospital. PAST MEDICAL HISTORY: Denies. PAST SURGICAL HISTORY: Denies. SOCIAL HISTORY: Drinks alcohol. Denies IV drug abuse and tobacco use. ALLERGIES: No known drug allergies. MEDICATIONS: Denies taking medications as an outpatient. REVIEW OF SYSTEMS: Denies rash, fever, chills, sweating, dizziness, drowsiness, sore throat, or change in weight. No shortness of breath or chest pain. No nausea, vomiting, diarrhea, blood in the stool or urine. No bowel or bladder incontinence. No dysuria. She is complaining of migraine headache. PHYSICAL EXAMINATION: GENERAL: Alert, awake, oriented. VITAL SIGNS: Stable. HEENT: PERRLA. NECK: Range of motion is full in all directions. No tenderness to paracervical muscles. No adenopathy. LUNGS: Clear bilaterally. HEART: S1 and S2 regular. ABDOMEN: Soft and tenderness to palpation. BACK: Range of motion is full in flexion and extension. EXTREMITIES: Upper and lower extremity range of motion is full in all directions. No cyanosis. No clubbing. No edema. Sensory is intact. Reflexes are not obtainable. No adenopathy. ASSESSMENT AND PLAN: This is a 22-year-old male with abdominal pain, acute pancreatitis. The patient will be started on Dilaudid 0.5 mg IV every 4 hours as needed for severe pain. The patient was discussed with Dr. Ball and Dr. Ball concurred. We will follow the patient. Thank you very much for the courtesy of this consultation. Roslyn Ball M.D. SENA Aguilar DR: JANAE JOB#: [id number] CC: JESUS
[2018-10-23] VITALS: BP 149/100
--- NOTE | 2018-10-23 00:30 | History and Physical Report ---
DATE OF ADMISSION: 10/22/2018 NOTE: "POOR AUDIO QUALITY" CHIEF COMPLAINT: Alcoholic pancreatitis. HISTORY OF PRESENT ILLNESS: The patient complains of abdominal pain, alcohol abuse, pancreatitis and has elevated WBC, lipase, and LFTs and low potassium and admitted for those reasons. The patient also complains of vomiting and abdominal pain for one day. Denies hematemesis. Denies rectal bleeding. Denies orthopnea. No shortness of breath. No cough. PAST MEDICAL HISTORY: Alcohol abuse, history of pancreatitis, depression. PAST SURGICAL HISTORY: None. SOCIAL HISTORY: History of smoking. History of drug and alcohol abuse. MEDICATIONS: None. ALLERGIES: No known allergies. FAMILY HISTORY: Noncontributory. REVIEW OF SYSTEMS: HEENT: Denies headaches. RESPIRATORY: Denies shortness of breath. Denies cough. CARDIOVASCULAR: Denies chest pain. Denies orthopnea. GASTROINTESTINAL: Reports vomiting and abdominal pain x1 day . EXTREMITIES: Denies pain in lower extremities. CENTRAL NERVOUS SYSTEM: Denies change in vision or speech pattern. PHYSICAL EXAMINATION: VITAL SIGNS: Temperature is 98.4, pulse 93, blood pressure 149/100. HEENT: PERRLA. NECK: Supple. No lymphadenopathy. CHEST: Clear to auscultation. CARDIOVASCULAR: Regular rate and rhythm. No murmurs or extra sounds. GASTROINTESTINAL: Soft. Positive epigastric tenderness. No rebound. Abdomen is soft. No organomegaly. EXTREMITIES: No edema. Moves all four extremities. NEUROLOGIC: Sensory intact to light touch. Reflexes on both sides. LABORATORY DATA: White blood cell count 13.4, hemoglobin 17.9, and platelets of 369,000. Sodium 138, potassium 3.5, BUN of 30, creatinine 0.9, and glucose of 129. ASSESSMENT AND PLAN: Abdominal pain and vomiting due to alcoholic pancreatitis and also has electrolyte imbalance. I have asked Dr. Rodriguez, Dr. Cason, Dr. Ball, Dr. Alan to see the patient for the treatment of the above-mentioned diagnoses. Patti Torrez M.D. DR: Pat JOB#: [id number] CC:
[2018-10-23] MEDS: Hydromorphone 0.5mg/0.5ml inj IVP PRN ×2 (00:31→04:42)
[2018-10-23 04:00] VITALS: BP 153/101
[2018-10-23 06:31] LABS: BASOPHILS % (AUTO) 0.8 % (0.0-2.0); EOSINOPHILS % (AUTO) 4.6 % (0.0-3.0); HEMATOCRIT 48.4 % (42.0-52.0); HEMOGLOBIN 16.6 G/DL (14.2-18.0); LYMPHOCYTES % (AUTO) 16.7 % (20.0-45.0); MEAN CORPUSCULAR VOLUME 94 FL (80-99); MONOCYTES % (AUTO) 8.7 % (1.0-10.0); NEUTROPHILS % (AUTO) 69.3 % (45.0-75.0); PLATELET COUNT 267 K/UL (150-450); RED BLOOD COUNT 5.18 M/UL (4.70-6.10); WHITE BLOOD COUNT 9.5 K/UL (4.8-10.8)
[2018-10-23 07:00] LABS: ALANINE AMINOTRANSFERASE 46 U/L (12-78); ALBUMIN 3.6 G/DL (3.4-5.0); ALBUMIN/GLOBULIN RATIO 0.9 (1.0-2.7); ALKALINE PHOSPHATASE 84 U/L (46-116); AMYLASE 55 U/L (25-115); ANION GAP 6 mmol/L (5-15); ASPARTATE AMINO TRANSFERASE 42 U/L (15-37); BILIRUBIN,TOTAL 0.9 MG/DL (0.2-1.0); CALCIUM 9.3 MG/DL (8.5-10.1); CARBON DIOXIDE 30 MMOL/L (21-32); CHLORIDE 97 MMOL/L (98-107); CHOLESTEROL 150 MG/DL (< 200); CREATININE 0.7 MG/DL (0.55-1.30); HDL CHOLESTEROL 53 MG/DL (40-60); POTASSIUM 3.3 MMOL/L (3.5-5.1); SODIUM 133 MMOL/L (136-145); TRIGLYCERIDES 116 MG/DL (30-150)
[2018-10-23 07:03] LABS: CREATINE KINASE 159 U/L (26-308); GAMMA GLUTAMYL TRANSPEPTIDASE 162 U/L (5-85); PHOSPHORUS 3.7 MG/DL (2.5-4.9)
--- NOTE | 2018-10-23 07:10 | NUR ---
HAND-OFF: Report given to ANNIKA Sheets.
--- NOTE | 2018-10-23 07:15 | NUR ---
NURSE NOTES: Received report from Jennifer ROBLERO. Patient is awake alert and oriented during rounds, no acute distress noted. Patient reports his pain is 5/10 in RUQ at this time but it is tolerable, patient denies nausea/emesis. IVF running as ordered through intact and patent LAC IV. Patient updated on plan of care for the day. Side rails upx2, bed low and locked, call light in reach. Will continue to monitor.
--- NOTE | 2018-10-23 07:18 | NUR ---
NURSE NOTES: Spoke with Dr. Torrez. Reported patient's low sodium, potassium, and magnesium this morning. MD ordered to call Dr. Rodriguez for further orders. Will follow up as ordered.
[2018-10-23 07:48] LABS: BLOOD UREA NITROGEN 7 mg/dL (7-18)
[2018-10-23 08:00] VITALS: BP 157/105
--- NOTE | 2018-10-23 08:10 | General Progress Note ---
Assessment/Plan Problem List: (1) Fatty liver ICD Codes: K76.0 - Fatty (change of) liver, not elsewhere classified SNOMED: 106418065 (2) ETOH abuse ICD Codes: F10.10 - Alcohol abuse, uncomplicated SNOMED: 52411341, 92252085 (3) Abdominal pain ICD Codes: R10.9 - Unspecified abdominal pain SNOMED: 66135489 (4) Pancreatitis ICD Codes: K85.90 - Acute pancreatitis without necrosis or infection, unspecified SNOMED: 58181675 Assessment/Plan: improving labs ivf start clears and advance as tolerated pain control repeat labs Subjective ROS Limited/Unobtainable: Yes Allergies: Coded Allergies: NO KNOWN ALLERGIES (Unverified Allergy, Unknown, 10/29/15) Objective Last 24 Hour Vital Signs Date Time Temp Pulse Resp B/P (MAP) Pulse Ox O2 Delivery O2 Flow Rate FiO2 10/23/18 04:00 98.5 84 18 153/101 (118) 99 10/23/18 00:00 98.4 98 18 149/100 (116) 98 10/22/18 21:00 Room Air 10/22/18 20:00 98.2 92 18 148/105 (119) 99 92 10/22/18 16:00 97.5 64 21 146/99 (115) 99 10/22/18 12:00 97.5 75 20 152/96 (114) 98 10/22/18 08:10 Room Air Intake and Output 10/22/18 10/23/18 19:00 07:00 Intake Total 545 ml 600 ml Balance 545 ml 600 ml Intake Oral 20 ml IV Total 525 ml 600 ml # Voids 2 Laboratory Tests 10/22/18 14:30: Urine Opiates Screen PositiveH, Urine Barbiturates Screen Negative, Phencyclidine (PCP) Screen Negative, Urine Amphetamines Screen PositiveH, Urine Benzodiazepines Screen Negative, Urine Cocaine Screen Negative, Urine Marijuana (THC) Screen PositiveH 10/23/18 05:15: White Blood Count 9.5, Red Blood Count 5.18, Hemoglobin 16.6, Hematocrit 48.4, Mean Corpuscular Volume 94, Mean Corpuscular Hemoglobin 32.1H, Mean Corpuscular Hemoglobin Concent 34.3, Red Cell Distribution Width 11.0L, Platelet Count 267, Mean Platelet Volume 6.4L, Neutrophils (%) (Auto) 69.3, Lymphocytes (%) (Auto) 16.7L, Monocytes (%) (Auto) 8.7, Eosinophils (%) (Auto) 4.6H, Basophils (%) ( Auto) 0.8, Sodium Level 133L, Potassium Level 3.3L, Chloride Level 97L, Carbon Dioxide Level 30, Anion Gap 6, Blood Urea Nitrogen 7, Creatinine 0.7, Estimat Glomerular Filtration Rate > 60, Glucose Level 90, Hemoglobin A1c 5.7, Uric Acid 5.0, Calcium Level 9.3, Phosphorus Level 3.7, Magnesium Level 1.4L, Total Bilirubin 0.9, Gamma Glutamyl Transpeptidase 162H, Aspartate Amino Transf (AST/ SGOT) 42H, Alanine Aminotransferase (ALT/SGPT) 46, Alkaline Phosphatase 84, Total Creatine Kinase 159, C-Reactive Protein, Quantitative 5.6H, Pro-B-Type Natriuretic Peptide 113, Total Protein 7.8, Albumin 3.6, Globulin 4.2, Albumin/ Globulin Ratio 0.9L, Triglycerides Level 116, Cholesterol Level 150, LDL Cholesterol 80, HDL Cholesterol 53, Cholesterol/HDL Ratio 2.8L, Amylase Level 55 , Lipase 414H, Thyroid Stimulating Hormone (TSH) 1.808 Height (Feet): 5 Height (Inches): 6.00 Weight (Pounds): 159 General Appearance: alert EENT: normal ENT inspection Neck: supple Cardiovascular: normal peripheral pulses Respiratory/Chest: lungs clear Abdomen: soft, hypoactive bowel sounds, tender Extremities: non-tender Fadi Cason MD Oct 23, 2018 08:10
--- NOTE | 2018-10-23 08:15 | NUR ---
NURSE NOTES: Orders received from Dr. Cason for magnesium replacement, low sodium and low potassium. Will carry out as ordered.
--- NOTE | 2018-10-23 09:35 | General Progress Note ---
Assessment/Plan Assessment/Plan: (1) Abdominal pain (2) Acute pancreatitis Patient will be continued on Dilaudid D/w Dr. Ball and he concurred. Subjective Date patient seen: Oct 23, 2018 Time patient seen: 08:40 - am Allergies: Coded Allergies: NO KNOWN ALLERGIES (Unverified Allergy, Unknown, 10/29/15) Subjective REVIEW OF SYSTEMS: Denies rash, fever, chills, sweating, dizziness, drowsiness, sore throat, or change in weight. No shortness of breath or chest pain. No nausea, vomiting, diarrhea, blood in the stool or urine. No bowel or bladder incontinence. No dysuria. complaining of abdominal pain. SUBJECTIVE: Patient is in bed no signs of pain or distress. Pain is a 3/10 and has used 3 doses of Dilaudid in the last 24hrs. No new complaints at this time. Objective Last 24 Hour Vital Signs Date Time Temp Pulse Resp B/P (MAP) Pulse Ox O2 Delivery O2 Flow Rate FiO2 10/23/18 04:00 98.5 84 18 153/101 (118) 99 10/23/18 00:00 98.4 98 18 149/100 (116) 98 10/22/18 21:00 Room Air 10/22/18 20:00 98.2 92 18 148/105 (119) 99 92 10/22/18 16:00 97.5 64 21 146/99 (115) 99 10/22/18 12:00 97.5 75 20 152/96 (114) 98 Intake and Output 10/22/18 10/23/18 19:00 07:00 Intake Total 545 ml 600 ml Balance 545 ml 600 ml Intake Oral 20 ml IV Total 525 ml 600 ml # Voids 2 Laboratory Tests 10/22/18 14:30: Urine Opiates Screen PositiveH, Urine Barbiturates Screen Negative, Phencyclidine (PCP) Screen Negative, Urine Amphetamines Screen PositiveH, Urine Benzodiazepines Screen Negative, Urine Cocaine Screen Negative, Urine Marijuana (THC) Screen PositiveH 10/23/18 05:15: White Blood Count 9.5, Red Blood Count 5.18, Hemoglobin 16.6, Hematocrit 48.4, Mean Corpuscular Volume 94, Mean Corpuscular Hemoglobin 32.1H, Mean Corpuscular Hemoglobin Concent 34.3, Red Cell Distribution Width 11.0L, Platelet Count 267, Mean Platelet Volume 6.4L, Neutrophils (%) (Auto) 69.3, Lymphocytes (%) (Auto) 16.7L, Monocytes (%) (Auto) 8.7, Eosinophils (%) (Auto) 4.6H, Basophils (%) ( Auto) 0.8, Sodium Level 133L, Potassium Level 3.3L, Chloride Level 97L, Carbon Dioxide Level 30, Anion Gap 6, Blood Urea Nitrogen 7, Creatinine 0.7, Estimat Glomerular Filtration Rate > 60, Glucose Level 90, Hemoglobin A1c 5.7, Uric Acid 5.0, Calcium Level 9.3, Phosphorus Level 3.7, Magnesium Level 1.4L, Total Bilirubin 0.9, Gamma Glutamyl Transpeptidase 162H, Aspartate Amino Transf (AST/ SGOT) 42H, Alanine Aminotransferase (ALT/SGPT) 46, Alkaline Phosphatase 84, Total Creatine Kinase 159, C-Reactive Protein, Quantitative 5.6H, Pro-B-Type Natriuretic Peptide 113, Total Protein 7.8, Albumin 3.6, Globulin 4.2, Albumin/ Globulin Ratio 0.9L, Triglycerides Level 116, Cholesterol Level 150, LDL Cholesterol 80, HDL Cholesterol 53, Cholesterol/HDL Ratio 2.8L, Amylase Level 55 , Lipase 414H, Thyroid Stimulating Hormone (TSH) 1.808 Height (Feet): 5 Height (Inches): 6.00 Weight (Pounds): 159 Objective GENERAL: Alert, awake, oriented. LUNGS: Clear bilaterally. HEART: S1 and S2 regular. ABDOMEN: Soft and tenderness to palpation. BACK: Range of motion is full in flexion and extension. EXTREMITIES: No cyanosis. No clubbing. No edema. NEURO: No changes. Martin Pérez Oct 23, 2018 09:35
[2018-10-23] MEDS: Thiamine 100mg tab ORAL SCH (09:44)
[2018-10-23] MEDS: NS w/KCl 20mEq 1000ml 1,000 ML IV SCH (10:07)
--- NOTE | 2018-10-23 14:41 | NUR ---
CASE MANAGEMENT: REVIEW 10/23/2018 SI: ALCOHOL PANCREATITIS T 98.7 HR 82 RR 20 B/P 157/105 SATS 97% ON RA NA 133 K 3.3 CL 97 AST 42 LIPASE 414 IS: KCL+ NS @ 75 mL/HR K DUR PO BID FOLATE PO QD NORVASC PO QD PEPCID IV Q12H : TO MED/SURG [facility]
--- NOTE | 2018-10-23 15:47 | Nephrology Progress Note ---
Assessment/Plan Problem List: (1) HTN (hypertension) (2) Hypokalemia (3) ETOH abuse (4) Pancreatitis Assessment: lipase lowering (5) Polysubstance abuse Assessment Alcoholic pancreatitis Polysubstance abuse HTN electrolyte imbalance Plan BP management per orders Per GI mag and K supplement Subjective ROS Limited/Unobtainable: No Constitutional: Reports: malaise Objective Objective Last 24 Hour Vital Signs Date Time Temp Pulse Resp B/P (MAP) Pulse Ox O2 Delivery O2 Flow Rate FiO2 10/23/18 09:44 82 157/105 10/23/18 09:00 Room Air 10/23/18 08:00 98.7 82 20 157/105 (122) 97 10/23/18 04:00 98.5 84 18 153/101 (118) 99 10/23/18 00:00 98.4 98 18 149/100 (116) 98 10/22/18 21:00 Room Air 10/22/18 20:00 98.2 92 18 148/105 (119) 99 92 10/22/18 16:00 97.5 64 21 146/99 (115) 99 Intake and Output 10/22/18 10/23/18 19:00 07:00 Intake Total 545 ml 600 ml Balance 545 ml 600 ml Intake Oral 20 ml IV Total 525 ml 600 ml # Voids 2 Laboratory Tests 10/23/18 05:15: White Blood Count 9.5, Red Blood Count 5.18, Hemoglobin 16.6, Hematocrit 48.4, Mean Corpuscular Volume 94, Mean Corpuscular Hemoglobin 32.1H, Mean Corpuscular Hemoglobin Concent 34.3, Red Cell Distribution Width 11.0L, Platelet Count 267, Mean Platelet Volume 6.4L, Neutrophils (%) (Auto) 69.3, Lymphocytes (%) (Auto) 16.7L, Monocytes (%) (Auto) 8.7, Eosinophils (%) (Auto) 4.6H, Basophils (%) ( Auto) 0.8, Sodium Level 133L, Potassium Level 3.3L, Chloride Level 97L, Carbon Dioxide Level 30, Anion Gap 6, Blood Urea Nitrogen 7, Creatinine 0.7, Estimat Glomerular Filtration Rate > 60, Glucose Level 90, Hemoglobin A1c 5.7, Uric Acid 5.0, Calcium Level 9.3, Phosphorus Level 3.7, Magnesium Level 1.4L, Total Bilirubin 0.9, Gamma Glutamyl Transpeptidase 162H, Aspartate Amino Transf (AST/ SGOT) 42H, Alanine Aminotransferase (ALT/SGPT) 46, Alkaline Phosphatase 84, Total Creatine Kinase 159, C-Reactive Protein, Quantitative 5.6H, Pro-B-Type Natriuretic Peptide 113, Total Protein 7.8, Albumin 3.6, Globulin 4.2, Albumin/ Globulin Ratio 0.9L, Triglycerides Level 116, Cholesterol Level 150, LDL Cholesterol 80, HDL Cholesterol 53, Cholesterol/HDL Ratio 2.8L, Amylase Level 55 , Lipase 414H, Thyroid Stimulating Hormone (TSH) 1.808 Height (Feet): 5 Height (Inches): 6.00 Weight (Pounds): 159 General Appearance: no apparent distress Cardiovascular: normal rate Respiratory/Chest: lungs clear Abdomen: distended Indio Rodriguez MD Oct 23, 2018 15:47
[2018-10-23 16:00] VITALS: BP 132/85
--- NOTE | 2018-10-23 19:25 | NUR ---
NURSE NOTES: Report taken from ANNIKA Sheets. Patient is awake and in bed, family at bedside, A&Ox4. No signs of distress on room air. No complaints of pain. IV site c/d/i and patent, running NS+20K at 75mls/hr. Skin is c/d/i, some minor redness on arms and ankles from history of eczema. Tolerating fluids well. Bed is in lowest position, call light within reach.
--- NOTE | 2018-10-23 19:30 | NUR ---
HAND-OFF: Report given to Royce ROBLERO. Patient is in stable condition.
[2018-10-23 20:00] VITALS: BP 128/83
--- NOTE | 2018-10-23 23:05 | General Progress Note ---
Assessment/Plan Problem List: (1) ETOH abuse ICD Codes: F10.10 - Alcohol abuse, uncomplicated SNOMED: 16986236, 77196812 (2) Abdominal pain ICD Codes: R10.9 - Unspecified abdominal pain SNOMED: 31442362 (3) Pancreatitis ICD Codes: K85.90 - Acute pancreatitis without necrosis or infection, unspecified SNOMED: 96278731 (4) Hypokalemia ICD Codes: E87.6 - Hypokalemia SNOMED: 62166028 (5) HTN (hypertension) ICD Codes: I10 - Essential (primary) hypertension SNOMED: 08027092 (6) Polysubstance abuse ICD Codes: F19.10 - Other psychoactive substance abuse, uncomplicated SNOMED: 274664115 Status: progressing Assessment/Plan: afebrile etoh pancreatitis vomitting improving decrease abdominal pain afebrile Subjective ROS Limited/Unobtainable: Yes Allergies: Coded Allergies: NO KNOWN ALLERGIES (Unverified Allergy, Unknown, 10/29/15) Objective Last 24 Hour Vital Signs Date Time Temp Pulse Resp B/P (MAP) Pulse Ox O2 Delivery O2 Flow Rate FiO2 10/23/18 22:14 Room Air 10/23/18 20:00 98.5 82 17 128/83 (98) 100 10/23/18 17:54 100 132/85 10/23/18 16:00 97.3 100 20 132/85 (101) 98 10/23/18 09:44 82 157/105 10/23/18 09:00 Room Air 10/23/18 08:00 98.7 82 20 157/105 (122) 97 10/23/18 04:00 98.5 84 18 153/101 (118) 99 10/23/18 00:00 98.4 98 18 149/100 (116) 98 Intake and Output 10/22/18 10/23/18 19:00 07:00 Intake Total 545 ml 675 ml Balance 545 ml 675 ml Intake Oral 20 ml IV Total 525 ml 675 ml # Voids 2 Laboratory Tests 10/23/18 05:15: White Blood Count 9.5, Red Blood Count 5.18, Hemoglobin 16.6, Hematocrit 48.4, Mean Corpuscular Volume 94, Mean Corpuscular Hemoglobin 32.1H, Mean Corpuscular Hemoglobin Concent 34.3, Red Cell Distribution Width 11.0L, Platelet Count 267, Mean Platelet Volume 6.4L, Neutrophils (%) (Auto) 69.3, Lymphocytes (%) (Auto) 16.7L, Monocytes (%) (Auto) 8.7, Eosinophils (%) (Auto) 4.6H, Basophils (%) ( Auto) 0.8, Sodium Level 133L, Potassium Level 3.3L, Chloride Level 97L, Carbon Dioxide Level 30, Anion Gap 6, Blood Urea Nitrogen 7, Creatinine 0.7, Estimat Glomerular Filtration Rate > 60, Glucose Level 90, Hemoglobin A1c 5.7, Uric Acid 5.0, Calcium Level 9.3, Phosphorus Level 3.7, Magnesium Level 1.4L, Total Bilirubin 0.9, Gamma Glutamyl Transpeptidase 162H, Aspartate Amino Transf (AST/ SGOT) 42H, Alanine Aminotransferase (ALT/SGPT) 46, Alkaline Phosphatase 84, Total Creatine Kinase 159, C-Reactive Protein, Quantitative 5.6H, Pro-B-Type Natriuretic Peptide 113, Total Protein 7.8, Albumin 3.6, Globulin 4.2, Albumin/ Globulin Ratio 0.9L, Triglycerides Level 116, Cholesterol Level 150, LDL Cholesterol 80, HDL Cholesterol 53, Cholesterol/HDL Ratio 2.8L, Amylase Level 55 , Lipase 414H, Thyroid Stimulating Hormone (TSH) 1.808 Height (Feet): 5 Height (Inches): 6.00 Weight (Pounds): 159 Neck: supple Cardiovascular: normal rate Respiratory/Chest: lungs clear Abdomen: soft Patti Torrez MD Oct 23, 2018 23:05
[2018-10-24] VITALS (7 sets, daily range): BP systolic 130–138; BP diastolic 86–95
[2018-10-24] MEDS: NS w/KCl 20mEq 1000ml 1,000 ML IV SCH ×3 (01:19→14:14)
[2018-10-24 06:14] LABS: BASOPHILS % (AUTO) 0.7 % (0.0-2.0); EOSINOPHILS % (AUTO) 7.2 % (0.0-3.0); HEMATOCRIT 47.7 % (42.0-52.0); HEMOGLOBIN 16.3 G/DL (14.2-18.0); LYMPHOCYTES % (AUTO) 21.6 % (20.0-45.0); MEAN CORPUSCULAR VOLUME 94 FL (80-99); MONOCYTES % (AUTO) 8.8 % (1.0-10.0); NEUTROPHILS % (AUTO) 61.7 % (45.0-75.0); PLATELET COUNT 277 K/UL (150-450); RED BLOOD COUNT 5.08 M/UL (4.70-6.10); RED CELL DISTRIBUTION WIDTH 11.2 % (11.6-14.8); WHITE BLOOD COUNT 7.4 K/UL (4.8-10.8)
[2018-10-24 06:44] LABS: PHOSPHORUS 3.3 MG/DL (2.5-4.9)
[2018-10-24 07:06] LABS: ALANINE AMINOTRANSFERASE 39 U/L (12-78); ALBUMIN 3.7 G/DL (3.4-5.0); ALBUMIN/GLOBULIN RATIO 0.9 (1.0-2.7); ALKALINE PHOSPHATASE 80 U/L (46-116); AMYLASE 45 U/L (25-115); ANION GAP 9 mmol/L (5-15); ASPARTATE AMINO TRANSFERASE 58 U/L (15-37); BILIRUBIN,TOTAL 0.8 MG/DL (0.2-1.0); BLOOD UREA NITROGEN 7 mg/dL (7-18); CALCIUM 9.1 MG/DL (8.5-10.1); CARBON DIOXIDE 27 MMOL/L (21-32); CHLORIDE 99 MMOL/L (98-107); CREATININE 0.7 MG/DL (0.55-1.30); POTASSIUM 3.8 MMOL/L (3.5-5.1); SODIUM 135 MMOL/L (136-145)
--- NOTE | 2018-10-24 07:30 | NUR ---
NURSE NOTES: Report received from Royce ROBLERO, rounds made. Patient sleeping in prone position in bed. No distress noted on RA. IVF (NS +20KCl at 75 ml/hr) to LAC. Bilateral SCDs off. Voids in urinal y/cl urine. Bed in lowest position, call light in reach, will continue to monitor.
--- NOTE | 2018-10-24 07:33 | NUR ---
HAND-OFF: Report given to ANNIKA Rios. Patient is asleep, VS stable.
--- NOTE | 2018-10-24 08:14 | General Progress Note ---
Assessment/Plan Assessment/Plan: (1) Abdominal pain (2) Acute pancreatitis Patient will be continued on Dilaudid D/w Dr. Ball and he concurred. Subjective Date patient seen: Oct 24, 2018 Time patient seen: 07:30 - am Allergies: Coded Allergies: NO KNOWN ALLERGIES (Unverified Allergy, Unknown, 10/29/15) Subjective REVIEW OF SYSTEMS: Denies rash, fever, chills, sweating, dizziness, drowsiness, sore throat, or change in weight. No shortness of breath or chest pain. No nausea, vomiting, diarrhea, blood in the stool or urine. No bowel or bladder incontinence. No dysuria. complaining of abdominal pain. SUBJECTIVE: Patient is in bed and showing no signs of pain or distress. He is c/o some abdominal pain. Has taken 2 doses of the Dilaudid in the last 24hrs. Objective Last 24 Hour Vital Signs Date Time Temp Pulse Resp B/P (MAP) Pulse Ox O2 Delivery O2 Flow Rate FiO2 10/24/18 04:00 97.9 68 17 130/86 (101) 98 10/24/18 00:00 98.0 75 17 133/95 (108) 97 10/23/18 22:14 Room Air 10/23/18 20:00 98.5 82 17 128/83 (98) 100 10/23/18 17:54 100 132/85 10/23/18 16:00 97.3 100 20 132/85 (101) 98 10/23/18 09:44 82 157/105 10/23/18 09:00 Room Air Intake and Output 10/23/18 10/24/18 18:59 06:59 Intake Total 1630 ml Balance 1630 ml Intake Oral 480 ml IV Total 1150 ml # Voids 6 Laboratory Tests 10/24/18 04:45: White Blood Count 7.4, Red Blood Count 5.08, Hemoglobin 16.3, Hematocrit 47.7, Mean Corpuscular Volume 94, Mean Corpuscular Hemoglobin 32.1H, Mean Corpuscular Hemoglobin Concent 34.2, Red Cell Distribution Width 11.2L, Platelet Count 277, Mean Platelet Volume 6.4L, Neutrophils (%) (Auto) 61.7, Lymphocytes (%) (Auto) 21.6, Monocytes (%) (Auto) 8.8, Eosinophils (%) (Auto) 7.2H, Basophils (%) (Auto ) 0.7, Sodium Level 135L, Potassium Level 3.8, Chloride Level 99, Carbon Dioxide Level 27, Anion Gap 9, Blood Urea Nitrogen 7, Creatinine 0.7, Estimat Glomerular Filtration Rate > 60, Glucose Level 86, Uric Acid 5.1, Calcium Level 9.1, Phosphorus Level 3.3, Magnesium Level 1.9, Total Bilirubin 0.8, Aspartate Amino Transf (AST/SGOT) 58H, Alanine Aminotransferase (ALT/SGPT) 39, Alkaline Phosphatase 80, C-Reactive Protein, Quantitative 7.0H, Total Protein 7.6, Albumin 3.7, Globulin 3.9, Albumin/Globulin Ratio 0.9L, Amylase Level 45, Lipase 453H Height (Feet): 5 Height (Inches): 6.00 Weight (Pounds): 159 Objective GENERAL: Alert, awake, oriented. LUNGS: Clear bilaterally. HEART: S1 and S2 regular. ABDOMEN: Soft and tenderness to palpation. EXTREMITIES: No cyanosis. No clubbing. No edema. NEURO: No changes. Martin Pérez Oct 24, 2018 08:14
[2018-10-24] MEDS: Hydromorphone 0.5mg/0.5ml inj IVP PRN (08:49)
[2018-10-24] MEDS: Thiamine 100mg tab ORAL SCH (08:51)
--- NOTE | 2018-10-24 10:23 | NUR ---
CASE MANAGEMENT: REVIEW 10/24/2018 SI: ALCOHOL PANCREATITIS T 98.7 HR 90 RR 18 B/P 137/89 SATS 99% ON RA NA 135 AST 58 CRP 7 IS: KCL+ NS @ 75 mL/HR K DUR PO BID FOLATE PO QD NORVASC PO QD PEPCID IV Q12H : TO MED/SURG [address] [place] [address]
--- NOTE | 2018-10-24 10:51 | GI Progress Note ---
Assessment/Plan Problems: (1) Polysubstance abuse ICD Codes: F19.10 - Other psychoactive substance abuse, uncomplicated SNOMED: 096687560 (2) HTN (hypertension) ICD Codes: I10 - Essential (primary) hypertension SNOMED: 43669260 (3) Pancreatitis ICD Codes: K85.90 - Acute pancreatitis without necrosis or infection, unspecified SNOMED: 94175451 (4) Fatty liver ICD Codes: K76.0 - Fatty (change of) liver, not elsewhere classified SNOMED: 894723129 (5) ETOH abuse ICD Codes: F10.10 - Alcohol abuse, uncomplicated SNOMED: 29056893, 81955912 (6) Abdominal pain ICD Codes: R10.9 - Unspecified abdominal pain SNOMED: 23606059 (7) Depression ICD Codes: F32.9 - Major depressive disorder, single episode, unspecified SNOMED: 61876211 Status: stable Status Narrative Discussed with Dr. Cason Assessment/Plan Alcoholic pancreatitis Elevated lipase level 894 Urine toxicity positive for amphetamines and marijuana Diet as tolerated Bowel rest, n.p.o. plus IV fluids Zofran as needed PPI Pain management Recommend psychiatric consult Follow labs The patient was seen and examined at bedside and all new and available data was reviewed in the patients chart. I agree with the above findings, impression and plan. (Patient seen earlier today. Signature stamp does not reflect patient encounter time.). - Fadi Cason MD Subjective Gastrointestinal/Abdominal: Reports: abdominal pain Objective Last 24 Hour Vital Signs Date Time Temp Pulse Resp B/P (MAP) Pulse Ox O2 Delivery O2 Flow Rate FiO2 10/24/18 08:51 90 137/89 10/24/18 08:00 97.8 90 18 137/89 (105) 99 10/24/18 04:00 97.9 68 17 130/86 (101) 98 10/24/18 00:00 98.0 75 17 133/95 (108) 97 10/23/18 22:14 Room Air 10/23/18 20:00 98.5 82 17 128/83 (98) 100 10/23/18 17:54 100 132/85 10/23/18 16:00 97.3 100 20 132/85 (101) 98 Intake and Output 10/23/18 10/24/18 19:00 07:00 Intake Total 1555 ml Balance 1555 ml Intake Oral 480 ml IV Total 1075 ml # Voids 6 Laboratory Tests Test 10/24/18 04:45 White Blood Count 7.4 K/UL (4.8-10.8) Red Blood Count 5.08 M/UL (4.70-6.10) Hemoglobin 16.3 G/DL (14.2-18.0) Hematocrit 47.7 % (42.0-52.0) Mean Corpuscular Volume 94 FL (80-99) Mean Corpuscular Hemoglobin 32.1 PG (27.0-31.0) H Mean Corpuscular Hemoglobin Concent 34.2 G/DL (32.0-36.0) Red Cell Distribution Width 11.2 % (11.6-14.8) L Platelet Count 277 K/UL (150-450) Mean Platelet Volume 6.4 FL (6.5-10.1) L Neutrophils (%) (Auto) 61.7 % (45.0-75.0) Lymphocytes (%) (Auto) 21.6 % (20.0-45.0) Monocytes (%) (Auto) 8.8 % (1.0-10.0) Eosinophils (%) (Auto) 7.2 % (0.0-3.0) H Basophils (%) (Auto) 0.7 % (0.0-2.0) Sodium Level 135 MMOL/L (136-145) L Potassium Level 3.8 MMOL/L (3.5-5.1) Chloride Level 99 MMOL/L (98-107) Carbon Dioxide Level 27 MMOL/L (21-32) Anion Gap 9 mmol/L (5-15) Blood Urea Nitrogen 7 mg/dL (7-18) Creatinine 0.7 MG/DL (0.55-1.30) Estimat Glomerular Filtration Rate > 60 mL/min (>60) Glucose Level 86 MG/DL (74-106) Uric Acid 5.1 MG/DL (2.6-7.2) Calcium Level 9.1 MG/DL (8.5-10.1) Phosphorus Level 3.3 MG/DL (2.5-4.9) Magnesium Level 1.9 MG/DL (1.8-2.4) Total Bilirubin 0.8 MG/DL (0.2-1.0) Aspartate Amino Transf (AST/SGOT) 58 U/L (15-37) H Alanine Aminotransferase (ALT/SGPT) 39 U/L (12-78) Alkaline Phosphatase 80 U/L (46-116) C-Reactive Protein, Quantitative 7.0 mg/dL (0.00-0.90) H Total Protein 7.6 G/DL (6.4-8.2) Albumin 3.7 G/DL (3.4-5.0) Globulin 3.9 g/dL Albumin/Globulin Ratio 0.9 (1.0-2.7) L Amylase Level 45 U/L (25-115) Lipase 453 U/L (73-393) H Height (Feet): 5 Height (Inches): 6.00 Weight (Pounds): 159 General Appearance: WD/WN, no apparent distress, alert Cardiovascular: normal rate Respiratory/Chest: normal breath sounds, no respiratory distress Abdominal Exam: normal bowel sounds, non tender, soft Extremities: normal range of motion, non-tender Yennifer Mayorga NP Oct 24, 2018 10:51
[2018-10-24] MEDS: HYDROmorphone 1mg/ml Carpuject IVP PRN ×2 (11:59→20:26)
--- NOTE | 2018-10-24 12:48 | Nephrology Progress Note ---
Assessment/Plan Problem List: (1) HTN (hypertension) (2) Hypokalemia (3) ETOH abuse (4) Pancreatitis Assessment: lipase lowering (5) Polysubstance abuse Assessment Alcoholic pancreatitis Polysubstance abuse HTN electrolyte imbalance Plan BP management per orders Per GI mag and K supplement Subjective ROS Limited/Unobtainable: No Constitutional: Reports: malaise Objective Objective Last 24 Hour Vital Signs Date Time Temp Pulse Resp B/P (MAP) Pulse Ox O2 Delivery O2 Flow Rate FiO2 10/24/18 08:51 90 137/89 10/24/18 08:00 97.8 90 18 137/89 (105) 99 10/24/18 04:00 97.9 68 17 130/86 (101) 98 10/24/18 00:00 98.0 75 17 133/95 (108) 97 10/23/18 22:14 Room Air 10/23/18 20:00 98.5 82 17 128/83 (98) 100 10/23/18 17:54 100 132/85 10/23/18 16:00 97.3 100 20 132/85 (101) 98 Intake and Output 10/23/18 10/24/18 19:00 07:00 Intake Total 1555 ml Balance 1555 ml Intake Oral 480 ml IV Total 1075 ml # Voids 6 Laboratory Tests 10/24/18 04:45: White Blood Count 7.4, Red Blood Count 5.08, Hemoglobin 16.3, Hematocrit 47.7, Mean Corpuscular Volume 94, Mean Corpuscular Hemoglobin 32.1H, Mean Corpuscular Hemoglobin Concent 34.2, Red Cell Distribution Width 11.2L, Platelet Count 277, Mean Platelet Volume 6.4L, Neutrophils (%) (Auto) 61.7, Lymphocytes (%) (Auto) 21.6, Monocytes (%) (Auto) 8.8, Eosinophils (%) (Auto) 7.2H, Basophils (%) (Auto ) 0.7, Sodium Level 135L, Potassium Level 3.8, Chloride Level 99, Carbon Dioxide Level 27, Anion Gap 9, Blood Urea Nitrogen 7, Creatinine 0.7, Estimat Glomerular Filtration Rate > 60, Glucose Level 86, Uric Acid 5.1, Calcium Level 9.1, Phosphorus Level 3.3, Magnesium Level 1.9, Total Bilirubin 0.8, Aspartate Amino Transf (AST/SGOT) 58H, Alanine Aminotransferase (ALT/SGPT) 39, Alkaline Phosphatase 80, C-Reactive Protein, Quantitative 7.0H, Total Protein 7.6, Albumin 3.7, Globulin 3.9, Albumin/Globulin Ratio 0.9L, Amylase Level 45, Lipase 453H Height (Feet): 5 Height (Inches): 6.00 Weight (Pounds): 159 General Appearance: no apparent distress Cardiovascular: normal rate Respiratory/Chest: lungs clear Abdomen: distended Indio Rodriguez MD Oct 24, 2018 12:48
--- NOTE | 2018-10-24 16:06 | NUR ---
Social Service Note YOGI familiar with patient from previous admissions. Patient with alcohol related issues since 2016. Previously patient denied alcohol dependency and declined resources. Patient indicates he drinks a few beers throughout the day multiple times a week. Patient with presumptive medi-aldo, making treatment resources limited. SW discussed [facility] substance abuse hotline and community access centers such as [facility]. Patient states he is familiar with AA. Patient states upon discharge he will return home to address on the face sheet with his father Alec Scherer [phone]. Resources placed in patient's chart and should be provide to patient. Will monitor and be available as needed.
--- NOTE | 2018-10-24 19:10 | NUR ---
HAND-OFF: Report given to Alexanderu RN.
--- NOTE | 2018-10-24 19:35 | NUR ---
NURSE NOTES: Received report from ANNIKA Rios. Patient is awake, alert, and verbally responsive to let needs known. Patient is breathing unlabored and evenly without signs of distress at this time. No pain noted at the time of hand off. IV sited noted on the LAC, intact, dry, and running fluid as ordered. Skin condition eczema noted on the arms. Bilateral SCDs on. Patient's bed placed at the lowest with brakes on and side rails up x 2 to assist bed mobility. Call light placed within reach. Will continue to monitor and provide care as ordered.
--- NOTE | 2018-10-24 21:37 | General Progress Note ---
Assessment/Plan Problem List: (1) ETOH abuse ICD Codes: F10.10 - Alcohol abuse, uncomplicated SNOMED: 61228006, 17601663 (2) Abdominal pain ICD Codes: R10.9 - Unspecified abdominal pain SNOMED: 77600330 (3) Pancreatitis ICD Codes: K85.90 - Acute pancreatitis without necrosis or infection, unspecified SNOMED: 41006288 (4) Hypokalemia ICD Codes: E87.6 - Hypokalemia SNOMED: 54853043 (5) HTN (hypertension) ICD Codes: I10 - Essential (primary) hypertension SNOMED: 52969211 (6) Polysubstance abuse ICD Codes: F19.10 - Other psychoactive substance abuse, uncomplicated SNOMED: 173950336 Status: stable, progressing Assessment/Plan: dc planning afebrile etoh pancreatitis improving decrease abdominal pain Subjective ROS Limited/Unobtainable: Yes Allergies: Coded Allergies: NO KNOWN ALLERGIES (Unverified Allergy, Unknown, 10/29/15) Objective Last 24 Hour Vital Signs Date Time Temp Pulse Resp B/P (MAP) Pulse Ox O2 Delivery O2 Flow Rate FiO2 10/24/18 20:00 97.9 82 18 134/91 (105) 100 10/24/18 18:46 81 138/90 10/24/18 18:45 81 138/90 (106) 10/24/18 16:00 97.7 73 20 137/93 (108) 100 10/24/18 12:00 97.6 81 20 135/89 (104) 100 10/24/18 09:00 Room Air 10/24/18 08:51 90 137/89 10/24/18 08:00 97.8 90 18 137/89 (105) 99 10/24/18 04:00 97.9 68 17 130/86 (101) 98 10/24/18 00:00 98.0 75 17 133/95 (108) 97 10/23/18 22:14 Room Air Intake and Output 10/23/18 10/24/18 19:00 07:00 Intake Total 1555 ml Balance 1555 ml Intake Oral 480 ml IV Total 1075 ml # Voids 6 Laboratory Tests 10/24/18 04:45: White Blood Count 7.4, Red Blood Count 5.08, Hemoglobin 16.3, Hematocrit 47.7, Mean Corpuscular Volume 94, Mean Corpuscular Hemoglobin 32.1H, Mean Corpuscular Hemoglobin Concent 34.2, Red Cell Distribution Width 11.2L, Platelet Count 277, Mean Platelet Volume 6.4L, Neutrophils (%) (Auto) 61.7, Lymphocytes (%) (Auto) 21.6, Monocytes (%) (Auto) 8.8, Eosinophils (%) (Auto) 7.2H, Basophils (%) (Auto ) 0.7, Sodium Level 135L, Potassium Level 3.8, Chloride Level 99, Carbon Dioxide Level 27, Anion Gap 9, Blood Urea Nitrogen 7, Creatinine 0.7, Estimat Glomerular Filtration Rate > 60, Glucose Level 86, Uric Acid 5.1, Calcium Level 9.1, Phosphorus Level 3.3, Magnesium Level 1.9, Total Bilirubin 0.8, Aspartate Amino Transf (AST/SGOT) 58H, Alanine Aminotransferase (ALT/SGPT) 39, Alkaline Phosphatase 80, C-Reactive Protein, Quantitative 7.0H, Total Protein 7.6, Albumin 3.7, Globulin 3.9, Albumin/Globulin Ratio 0.9L, Amylase Level 45, Lipase 453H Height (Feet): 5 Height (Inches): 6.00 Weight (Pounds): 159 Cardiovascular: regular rhythm Respiratory/Chest: lungs clear Abdomen: soft Patti Torrez MD Oct 24, 2018 21:37
--- NOTE | 2018-10-24 23:20 | NUR ---
NURSE NOTES: Patient verbalized pain on the left antecubital IV site, noted with redness around. Explained procedure prior to perform. Patient was okay with the procedure to be done. Inserted new 22g IV on the left forearm. Asymptomatic, intact, patent, and clean. Previous IV site discontinued. Placed gauze with tape to put pressure. Patient tolerated the procedure well. New IV site connected with ordered fluid and running as ordered. Call light placed within reach. Will continue to monitor.
[2018-10-25] VITALS: BP 136/88
[2018-10-25] MEDS: NS w/KCl 20mEq 1000ml 1,000 ML IV SCH (03:15)
[2018-10-25 04:00] VITALS: BP 147/97
[2018-10-25] MEDS ORDERED: 1/2 NS 1000ml IV ONE (05:54)
[2018-10-25 07:08] LABS: BASOPHILS % (AUTO) 0.6 % (0.0-2.0); EOSINOPHILS % (AUTO) 4.5 % (0.0-3.0); HEMATOCRIT 49.4 % (42.0-52.0); HEMOGLOBIN 17.1 G/DL (14.2-18.0); LYMPHOCYTES % (AUTO) 18.2 % (20.0-45.0); MEAN CORPUSCULAR VOLUME 94 FL (80-99); MONOCYTES % (AUTO) 7.7 % (1.0-10.0); PLATELET COUNT 324 K/UL (150-450); RED BLOOD COUNT 5.28 M/UL (4.70-6.10); WHITE BLOOD COUNT 9.4 K/UL (4.8-10.8)
--- NOTE | 2018-10-25 07:23 | General Progress Note ---
Assessment/Plan Problem List: (1) Fatty liver ICD Codes: K76.0 - Fatty (change of) liver, not elsewhere classified SNOMED: 690989701 (2) ETOH abuse ICD Codes: F10.10 - Alcohol abuse, uncomplicated SNOMED: 44086600, 15949980 (3) Abdominal pain ICD Codes: R10.9 - Unspecified abdominal pain SNOMED: 53138085 (4) Pancreatitis ICD Codes: K85.90 - Acute pancreatitis without necrosis or infection, unspecified SNOMED: 67853103 Status: stable, progressing Assessment/Plan: (1) Polysubstance abuse ICD Codes: F19.10 - Other psychoactive substance abuse, uncomplicated SNOMED: 003815326 (2) HTN (hypertension) ICD Codes: I10 - Essential (primary) hypertension SNOMED: 24084122 (3) Pancreatitis ICD Codes: K85.90 - Acute pancreatitis without necrosis or infection, unspecified SNOMED: 59864430 (4) Fatty liver ICD Codes: K76.0 - Fatty (change of) liver, not elsewhere classified SNOMED: 721847098 (5) ETOH abuse ICD Codes: F10.10 - Alcohol abuse, uncomplicated SNOMED: 01584586, 99056738 (6) Abdominal pain ICD Codes: R10.9 - Unspecified abdominal pain SNOMED: 83819879 (7) Depression ICD Codes: F32.9 - Major depressive disorder, single episode, unspecified SNOMED: 24880685 Status: stable Status Narrative Discussed with Dr. Cason Assessment/Plan Alcoholic pancreatitis Elevated lipase level 894 Urine toxicity positive for amphetamines and marijuana Diet as tolerated Zofran as needed PPI Pain management Recommend psychiatric consult Follow labs Subjective ROS Limited/Unobtainable: Yes Allergies: Coded Allergies: NO KNOWN ALLERGIES (Unverified Allergy, Unknown, 10/29/15) Objective Last 24 Hour Vital Signs Date Time Temp Pulse Resp B/P (MAP) Pulse Ox O2 Delivery O2 Flow Rate FiO2 10/25/18 04:00 98.3 69 17 147/97 (114) 98 10/25/18 00:00 98.1 81 18 136/88 (104) 98 10/24/18 21:00 Room Air 10/24/18 20:00 97.9 82 18 134/91 (105) 100 10/24/18 18:46 81 138/90 10/24/18 18:45 81 138/90 (106) 10/24/18 16:00 97.7 73 20 137/93 (108) 100 10/24/18 12:00 97.6 81 20 135/89 (104) 100 10/24/18 09:00 Room Air 10/24/18 08:51 90 137/89 10/24/18 08:00 97.8 90 18 137/89 (105) 99 Intake and Output 10/24/18 10/25/18 18:59 06:59 Intake Total 1645 ml 900 ml Output Total 525 ml Balance 1120 ml 900 ml Intake Oral 820 ml IV Total 825 ml 900 ml Output Urine Total 525 ml # Voids 4 3 Laboratory Tests 10/25/18 06:15: White Blood Count [Pending], Red Blood Count [Pending], Hemoglobin [Pending], Hematocrit [Pending], Mean Corpuscular Volume [Pending], Mean Corpuscular Hemoglobin [Pending], Mean Corpuscular Hemoglobin Concent [Pending], Red Cell Distribution Width [Pending], Platelet Count [Pending], Mean Platelet Volume [ Pending], Neutrophils (%) (Auto) [Pending], Lymphocytes (%) (Auto) [Pending], Monocytes (%) (Auto) [Pending], Eosinophils (%) (Auto) [Pending], Basophils (%) (Auto) [Pending], Sodium Level [Pending], Potassium Level [Pending], Chloride Level [Pending], Carbon Dioxide Level [Pending], Blood Urea Nitrogen [Pending], Creatinine [Pending], Estimat Glomerular Filtration Rate [Pending], Glucose Level [Pending], Calcium Level [Pending], C-Reactive Protein, Quantitative [ Pending], Lipase [Pending] Height (Feet): 5 Height (Inches): 6.00 Weight (Pounds): 159 General Appearance: alert EENT: normal ENT inspection Neck: supple Cardiovascular: normal rate Respiratory/Chest: decreased breath sounds Abdomen: normal bowel sounds, non tender, soft Extremities: non-tender Fadi Cason MD Oct 25, 2018 07:23
[2018-10-25 07:24] LABS: ANION GAP 8 mmol/L (5-15); BLOOD UREA NITROGEN 8 mg/dL (7-18); CALCIUM 9.6 MG/DL (8.5-10.1); CARBON DIOXIDE 31 MMOL/L (21-32); CHLORIDE 97 MMOL/L (98-107); CREATININE 0.7 MG/DL (0.55-1.30); POTASSIUM 4.1 MMOL/L (3.5-5.1); SODIUM 136 MMOL/L (136-145)
--- NOTE | 2018-10-25 07:27 | NUR ---
HAND-OFF: Report given to David Regalado.
--- NOTE | 2018-10-25 07:30 | NUR ---
NURSE NOTES: Patient lying in bed awake. No complain of pain or distress at this time. Skin intact and dry. IV dressing intact and dry. Bed lowest position. Call light within reach. Will continue to monitor.
[2018-10-25 08:00] VITALS: BP 127/82
--- NOTE | 2018-10-25 09:10 | NUR ---
NURSE NOTES: Spoke to regarding patient and new order received. Order read back and carried out.
[2018-10-25] MEDS: Thiamine 100mg tab ORAL SCH (09:34)
--- NOTE | 2018-10-25 10:55 | NUR ---
NURSE NOTES: Spoke to regarding lab result and discharge. New order received - 1. Ok to discharge patient. Order read back and carried out.
--- NOTE | 2018-10-25 11:12 | Nephrology Progress Note ---
Assessment/Plan Problem List: (1) HTN (hypertension) (2) Hypokalemia (3) ETOH abuse (4) Pancreatitis Assessment: lipase lowering (5) Polysubstance abuse Assessment Alcoholic pancreatitis Polysubstance abuse HTN electrolyte imbalance Plan BP management per orders Per GI mag and K supplement DC IV as clinically improving Subjective ROS Limited/Unobtainable: No Constitutional: Reports: other - feels better Objective Objective Last 24 Hour Vital Signs Date Time Temp Pulse Resp B/P (MAP) Pulse Ox O2 Delivery O2 Flow Rate FiO2 10/25/18 09:35 98 127/82 10/25/18 09:00 Room Air 10/25/18 08:00 97.6 98 20 127/82 (97) 98 10/25/18 04:00 98.3 69 17 147/97 (114) 98 10/25/18 00:00 98.1 81 18 136/88 (104) 98 10/24/18 21:00 Room Air 10/24/18 20:00 97.9 82 18 134/91 (105) 100 10/24/18 18:46 81 138/90 10/24/18 18:45 81 138/90 (106) 10/24/18 16:00 97.7 73 20 137/93 (108) 100 10/24/18 12:00 97.6 81 20 135/89 (104) 100 Intake and Output 10/24/18 10/25/18 18:59 06:59 Intake Total 1645 ml 900 ml Output Total 525 ml Balance 1120 ml 900 ml Intake Oral 820 ml IV Total 825 ml 900 ml Output Urine Total 525 ml # Voids 4 3 Laboratory Tests 10/25/18 06:15: White Blood Count 9.4, Red Blood Count 5.28, Hemoglobin 17.1, Hematocrit 49.4, Mean Corpuscular Volume 94, Mean Corpuscular Hemoglobin 32.4H, Mean Corpuscular Hemoglobin Concent 34.6, Red Cell Distribution Width 11.0L, Platelet Count 324, Mean Platelet Volume 6.1L, Neutrophils (%) (Auto) 69.0, Lymphocytes (%) (Auto) 18.2L, Monocytes (%) (Auto) 7.7, Eosinophils (%) (Auto) 4.5H, Basophils (%) ( Auto) 0.6, Sodium Level 136, Potassium Level 4.1, Chloride Level 97L, Carbon Dioxide Level 31, Anion Gap 8, Blood Urea Nitrogen 8, Creatinine 0.7, Estimat Glomerular Filtration Rate > 60, Glucose Level 96, Calcium Level 9.6, C- Reactive Protein, Quantitative 4.0H, Lipase 601H Height (Feet): 5 Height (Inches): 6.00 Weight (Pounds): 159 General Appearance: no apparent distress Cardiovascular: normal rate Respiratory/Chest: lungs clear Abdomen: soft Indio Rodriguez MD Oct 25, 2018 11:12
[2018-10-25 12:00] VITALS: BP 146/82
--- NOTE | 2018-10-25 14:05 | NUR ---
NURSE NOTES: Patient discharged with family member in stable condition. Discharge instruction given to patient and verbalized understanding. Instructed to follow up with GI doctor and verbalized understanding. Belonging given to patient. IV and ID removed. Patient ambulated out with all personal belongings with steady gait.
--- NOTE | 2018-10-27 08:29 | Discharge Summary ---
Discharge Summary Discharge Summary _ DATE OF ADMISSION: 10/22/2018 DATE OF DISCHARGE: 10/25/2018 DISCHARGED BY: Dr. Murphy REASON FOR ADMISSION: 22 years old male with past medical history of pancreatitis, alcohol abuse, presented with right-sided abdominal pain. Patient reported daily consumption of alcohol/vodka. Pain reported to be severe , radiating to his back , 10 out of 10 on a scale 1- 10. Patient had multiple episodes of nonbilious nonbloody emesis. Patient had similar symptoms in the past. Last alcohol intake at 9 PM prior to coming in the ED . Upon evaluation patient was tachycardic with heart rate 118. Laboratory work-up revealed WBC 13.4, hemoglobin 17.9 , hematocrit 52.4. Platelets 359. Stable electrolytes. BUN 13 creatinine 0.9. Glucose 129. AST 119, ALT 78, total bilirubin 0.7. Lipase 894 Urine toxicology screen was positive for amphetamine , marijuana and opiates. Serum alcohol level 80. Urinalysis revealed +3 glucose , +2 protein , +4 ketones , no evidence of UTI. In the emergency department patient started on IV fluids and analgesia and admitted for further management. CONSULTANTS: GI specialist Dr. Cason parts analyst Dr. Rodriguez pain specialist Dr. Ball [facility] COURSE: Acute alcoholic pancreatitis ETOH abuse Hypertension Electrolyte abnormality/hypokalemia, hypomagnesemia-resolved Polysubstance abuse Fatty liver FINAL DIAGNOSES: Patient admitted to medical surgical floor. Patient initially was kept n.p.o. and IV fluids provided. Pain management was addressed as per pain specialist recommendations. GI specialist closely followed. Patient with recurrent episodes of acute alcoholic pancreatitis. Patient slowly started on liquid diet and was advanced as tolerated. Antiemetic provided as needed. GI prophylaxis provided. Patient was counseled on abstinence from alcohol and illicit street drugs. Total bilirubin stable. Hospitality Director followed. Blood pressure was managed with calcium channel андрей. Clonidine was on board as needed. Patient was started on folic acid and thiamine. Renal parameters and electrolytes were closely monitored. Magnesium and potassium were replaced. Upon discharge potassium 4.1, magnesium 1.9. Patient clinically stabilized and was ready for discharge home. DISCHARGE MEDICATIONS: See Medication Reconciliation list. DISCHARGE INSTRUCTIONS: Patient was discharged home . Follow up with primary care provider in one week. I have been assigned to dictate discharge summary for this account. I was not involved in the patient's management. Soniya Gallardo NP Oct 27, 2018 08:29
== END 2018-10-25 14:05 | disposition home or self-care (01) | DRG 282 ==
LOC: EMR 01:47 → 3E 03:48 → EDBEDREQ 05:06
DX: K85.20 Alcohol induced acute pancreatitis without necrosis or infection (principal); E83.42 Hypomagnesemia; K76.0 Fatty (change of) liver, not elsewhere classified; E87.6 Hypokalemia; F10.10 Alcohol abuse, uncomplicated; F19.10 Other psychoactive substance abuse, uncomplicated; I10 Essential (primary) hypertension; F32.9 Major depressive disorder, single episode, unspecified
CPT/HCPCS: 36415; 80048; 80053; 80061; 80307; 80329; 81003; 82150; 82550; 82977; 83036; 83690; 83735; 83880; 84100; 84443; 84550; 85025; 86140; 96374; 96375; 96376; 99285; J2405; J8499

== ENCOUNTER 2020-03-15 22:06 | Emergency (ER) | payer SELFPAY ==
[~2020-03-15] VITALS: Ht 167.6 cm; Wt 77.1 kg
[2020-03-15 22:26] VITALS: BP 135/87
--- NOTE | 2020-03-15 22:26 | NUR ---
ED Nurse Note: pt ambulated into ed from home co tightness in chest with trouble breathing. pt states he does not have a rescue inhaler at home at this time. pt aao x 4, placed in room on 2L 02 for spO2 of 94% to 100%. ERMD aware. Awaiting further orders. Awaiting ermd at bedside.
--- NOTE | 2020-03-15 22:35 | NUR ---
ED Nurse Note: ERMD at bedside
[2020-03-15] MEDS ORDERED: Albuterol/Ipratropium 3ml neb HHN ONE (22:45)
--- NOTE | 2020-03-15 22:49 | Emergency Room Report ---
History of Present Illness General Chief Complaint: Dyspnea/Respdistress Source: Patient Present Illness HPI Patient is a 24-year-old male presents for increased difficulty with breathing. Patient had prior history of asthma as well as traumatic injury to his chest in the past. Had reportedly been having onset of symptoms today. Denies any fever. Denies any nasal congestion or cough. Denies any headache. Nonproductive cough. Patient smokes marijuana intermittently but does not smoke for approximately 1 week. Denies any vomiting or diarrhea. 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 Patient History Past Medical History: see triage record Reviewed Nursing Documentation: PMH: Agreed; PSxH: Agreed Nursing Documentation-PMH Past Medical History: No History, Except For Hx Cardiac Problems: No Hx Asthma: Yes Hx Cancer: No Hx Gastrointestinal Problems: Yes Hx Neurological Problems: No Review of Systems All Other Systems: negative except mentioned in HPI Physical Exam Vital Signs Date Time Temp Pulse Resp B/P (MAP) Pulse Ox O2 Delivery O2 Flow Rate FiO2 03/15/20 22:16 97.7 89 21 135/87 (103) 94 Room Air Sp02 EP Interpretation: reviewed, normal General Appearance: normal inspection, well appearing, no apparent distress, alert, GCS 15 Head: atraumatic ENT: normal ENT inspection, hearing grossly normal, normal voice Neck: normal inspection, full range of motion, supple, no bony tend Respiratory: normal inspection, no respiratory distress, no retraction, wheezing Cardiovascular #1: regular rate, rhythm, no edema Gastrointestinal: normal inspection, normal bowel sounds, non tender, soft, no guarding, no hernia Genitourinary: no CVA tenderness Musculoskeletal: normal inspection, back normal, normal range of motion Neurologic: alert, motor strength/tone normal, [employer] product consultant III-XII nml as tested, oriented x3, responsive, speech normal, normal inspection Psychiatric: normal inspection, judgement/insight normal, mood/affect normal Skin: no rash Medical Decision Making Diagnostic Impression: Primary Impression: Asthma ER Course Patient presented for shortness of breath. Differential diagnosis include was not limited to coronavirus infection, pneumonia, pneumothorax, asthma among others. Coronavirus testing was ordered due to patient's need for breathing treatment and wheezing. Patient was noted to have increased wheezing on exam. Chest x-ray interpreted by me showed normal cardiac size without evident infiltrate. No respiratory distress. He was given oral prednisone.Patient was given breathing treatments. Coronavirus testing was negative. The patient is advised to follow up with primary care doctor in 1-2 days. Patient is advised to return if any worsening condition or if any changes in status that are concerning. This report is dictated with [employer] customer response representative software which may occasiona lly lead to discrepancies related to use of this software. Last Vital Signs Date Time Temp Pulse Resp B/P (MAP) Pulse Ox O2 Delivery O2 Flow Rate FiO2 03/15/20 22:16 97.7 89 21 135/87 (103) 94 Room Air Status: improved Disposition: HOME, SELF-CARE Condition: Stable Scripts Albuterol Sulfate* (PROAIR HFA*) 8.5 Gm Hfa.aer.ad 2 PUFFS INH Q6H, #8.5 GM 0 Refills Prov: Adam Jacobs MD 03/15/20 Prednisone* (PREDNISONE*) 20 Mg Tablet 40 MG ORAL DAILY, #10 TAB Prov: Adam Jacobs MD 03/15/20 Adam Jacobs MD Mar 15, 2020 22:49
--- NOTE | 2020-03-15 23:19 | NUR ---
ED Nurse Note: XRAY AT BEDSIDE
[2020-03-15] MEDS ORDERED: PREDNISONE20 MG ORAL (23:37)
[2020-03-15] MEDS ORDERED: PROAIR HFA8.5 GM INH (23:37)
--- NOTE | 2020-03-15 23:45 | NUR ---
ED Nurse Note: ERMD at bedside
--- NOTE | 2020-03-15 23:50 | NUR ---
ED Nurse Note: RT at bedside
--- NOTE | 2020-03-16 | NUR ---
ED Nurse Note: ermd at bedside
[2020-03-16 00:04] VITALS: BP 142/91
[2020-03-16 00:25] VITALS: BP 139/83
--- NOTE | 2020-03-16 00:25 | NUR ---
ER DISCHARGE NOTE: Patient is cleared to be discharged home per ERMD, pt is aox4, 99% on room air, with stable vital signs. pt was given dc and prescription instructions, pt was able to verbalize understanding, pt id band removed without complications. pt is able to ambulate with steady gait. pt took all belongings.
--- NOTE | 2020-03-16 19:09 | Diagnostic Imaging Report ---
Indication: Shortness of breath Technique: One view of the chest Comparison: 07/25/2016 Findings: 2 punctate metallic foreign bodies project over the left heart. The lungs and pleural spaces are clear. The heart size is normal. No significant interim change Impression: No acute process
== END 2020-03-16 00:25 | disposition home or self-care (01) ==
LOC: EMR 22:56
DX: J45.909 Unspecified asthma, uncomplicated (principal)
CPT/HCPCS: 71045; 94640; 99283; J7512; U0002; J7620

== ENCOUNTER 2020-04-10 21:59 | Emergency (ER) | payer SELFPAY ==
[~2020-04-10] VITALS: Ht 167.6 cm; Wt 77.1 kg
[~2020-04-10 21:59] MED LIST changes: +PREDNISONE20 MG ORAL
--- NOTE | 2020-04-10 22:10 | NUR ---
ED Nurse Note: ambulated from home c/o abdominal pain. hx of pancreatitis. onset during etoh; last known drink 0300 today. reports radiating pain to left flank and nausea; denies vomitting and diarrhea. changed into gown; attached to monitor. will continue to monitor.
--- NOTE | 2020-04-10 22:10 | Emergency Room Report ---
History of Present Illness General Chief Complaint: Abdominal Pain Source: Patient, Medical Record Present Illness HPI This is a 24-year-old male with a history of alcohol abuse with multiple ER visits and admission for pancreatitis. He presents with complaint of abdominal pain. Onset today. He has been drinking also. Has multiple episode of vomiting. Vomit is nonbloody nonbilious. No diarrhea. No fever chills. Pain is 9 out of 10. Pain is localized to the right upper quadrant and left flank. No radiation. No fever chills. Similar symptoms in the past. 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 Patient History Past Medical History: see triage record, old chart reviewed Past Surgical History: none Pertinent Family History: none Social History: Reports: alcohol use Immunizations: other Reviewed Nursing Documentation: PMH: Agreed; PSxH: Agreed Nursing Documentation-PMH Hx Cardiac Problems: No Hx Asthma: Yes Hx Cancer: No Hx Gastrointestinal Problems: Yes Hx Neurological Problems: No Review of Systems Eye: Denies: eye pain, blurred vision ENT: Denies: ear pain, nose congestion, throat swelling Respiratory: Denies: cough, shortness of breath Cardiovascular: Denies: chest pain, palpitations Gastrointestinal: Reports: abdominal pain, nausea, vomiting; Denies: diarrhea Musculoskeletal: Denies: back pain, joint pain Skin: Denies: rash Neurological: Denies: headache, numbness Endocrine: Denies: increased thirst, increased urine Hematologic/Lymphatic: Denies: easy bruising All Other Systems: negative except mentioned in HPI Physical Exam Vital Signs Date Time Temp Pulse Resp B/P (MAP) Pulse Ox O2 Delivery O2 Flow Rate FiO2 04/10/20 22:02 97.7 105 18 156/85 (108) 96 Room Air Vitals with high blood pressure Sp02 EP Interpretation: reviewed, normal General Appearance: well appearing, no apparent distress, alert Head: normocephalic, atraumatic Eyes: bilateral eye PERRL, bilateral eye EOMI ENT: hearing grossly normal, normal pharynx Neck: full range of motion, supple, no meningismus Respiratory: chest non-tender, lungs clear, normal breath sounds Cardiovascular #1: regular rate, rhythm, no murmur Gastrointestinal: normal bowel sounds, no mass, no organomegaly, no bruit, non- distended, tenderness - Mild, upper quadrants Musculoskeletal: back normal, normal range of motion, gait/station normal Psychiatric: mood/affect normal Medical Decision Making Diagnostic Impression: Primary Impression: Abdominal pain Qualified Codes: R10.84 - Generalized abdominal pain Additional Impression: Alcohol abuse ER Course Patient presents with abdominal pain from alcohol abuse. He has history of pancreatitis. CT scan from before show pseudocyst. Lipase is normal here. Abdominal pain improved greatly. No vomiting here. He said that he does get withdrawal symptoms when he stopped drinking. No withdrawal symptoms now. Will discharge home. No evidence of acute abdomen. Last Vital Signs Date Time Temp Pulse Resp B/P (MAP) Pulse Ox O2 Delivery O2 Flow Rate FiO2 04/10/20 22:02 97.7 105 18 156/85 (108) 96 Room Air Status: improved Disposition: HOME, SELF-CARE Condition: Stable Scripts Chlordiazepoxide (Chlordiazepoxide HCl) 25 Mg Capsule 25 MG ORAL THREE TIMES A DAY, #15 CAP 0 Refills Prov: Jarrod Mayorga MD 04/11/20 Patient Instructions: Abdominal Pain, Adult Additional Instructions: Abstain from alcohol. Go to rehab. Follow-up with your doctor in 7 days. Return if worse. Jarrod Mayorga MD Apr 10, 2020 22:10
[2020-04-10] MEDS ORDERED: HYDROmorphone 1mg/ml Carpuject IVP ONE (22:15)
[2020-04-10 22:25] VITALS: BP 156/85
--- NOTE | 2020-04-10 22:25 | NUR ---
ED Nurse Note: iv access established. blood and urine collected; sent down to lab.
[2020-04-10 22:48] LABS: APPEARANCE,URINE CLEAR; BILIRUBIN, URINE NEGATIVE (NEGATIVE); GLUCOSE, URINE (UA) NEGATIVE (NEGATIVE); KETONES,URINE 4+ (NEGATIVE); LEUKOCYTE ESTERASE ,URINE 1+ (NEGATIVE); NITRITE,URINE NEGATIVE (NEGATIVE); PH,URINE 6.5 (4.5-8.0); PROTEIN,URINE 1+ (NEGATIVE); UROBILINOGEN,URINE NORMAL MG/DL (0.0-1.0)
[2020-04-10 22:49] LABS: COLOR,URINE YELLOW; EOSINOPHILS % (AUTO) 1.5 % (0.0-3.0); HEMATOCRIT 46.2 % (42.0-52.0); HEMOGLOBIN 16.5 G/DL (14.2-18.0); MEAN CORPUSCULAR VOLUME 87 FL (80-99); MONOCYTES % (AUTO) 8.3 % (1.0-10.0); NEUTROPHILS % (AUTO) 69.1 % (45.0-75.0); PLATELET COUNT 285 K/UL (150-450); RED BLOOD COUNT 5.29 M/UL (4.70-6.10); RED CELL DISTRIBUTION WIDTH 14.3 % (11.6-14.8); WHITE BLOOD COUNT 11.1 K/UL (4.8-10.8)
[2020-04-10 22:59] LABS: ANION GAP 11 mmol/L (5-15); BLOOD UREA NITROGEN 14 mg/dL (7-18); CALCIUM 8.3 MG/DL (8.5-10.1); CARBON DIOXIDE 26 MMOL/L (21-32); CHLORIDE 98 MMOL/L (98-107); CREATININE 0.9 MG/DL (0.55-1.30); POTASSIUM 3.3 MMOL/L (3.5-5.1); SODIUM 135 MMOL/L (136-145)
[2020-04-10 23:04] LABS: ALANINE AMINOTRANSFERASE 63 U/L (12-78); ALKALINE PHOSPHATASE 78 U/L (46-116); ASPARTATE AMINO TRANSFERASE 76 U/L (15-37); BILIRUBIN,TOTAL 0.7 MG/DL (0.2-1.0)
[2020-04-11] MEDS ORDERED: LIBRIUM25 MG ORAL (00:01)
--- NOTE | 2020-04-11 00:15 | NUR ---
ER DISCHARGE NOTE: Patient is cleared to be discharged per ERMD, pt is aox4, on room air, with stable vital signs. pt was given dc and prescription instructions, pt was able to verbalize understanding, pt id band and iv site removed without complications. pt is able to ambulate with steady gait. pt took all belongings.
[2020-04-11 00:18] VITALS: BP 141/78
[2020-04-11] MEDS ORDERED: PROAIR HFA8.5 GM INH (12:36)
== END 2020-04-11 00:18 | disposition home or self-care (01) ==
LOC: EMR 22:09
DX: R10.84 Generalized abdominal pain (principal); F10.10 Alcohol abuse, uncomplicated; J45.909 Unspecified asthma, uncomplicated; Z87.19 Personal history of other diseases of the digestive system
CPT/HCPCS: 36415; 80053; 81003; 83690; 85025; 96361; 96374; 96375; 99284; J1170; J2405; J7030; S0028

== ENCOUNTER 2020-06-29 14:25 | Emergency (ER) | payer SELFPAY ==
[~2020-06-29] VITALS: Ht 167.6 cm; Wt 72.6 kg
[~2020-06-29 14:25] MED LIST changes: +LIBRIUM25 MG ORAL
[2020-06-29] MEDS ORDERED: LORazepam Inj 2mg/ml 1ml IV ONE ×3 (15:30→18:45)
[2020-06-29] MEDS ORDERED: Ketorolac 30mg Inj IV ONE (15:30)
[2020-06-29 16:11] LABS: BASOPHILS % (AUTO) 3.2 % (0.0-2.0); EOSINOPHILS % (AUTO) 4.4 % (0.0-3.0); HEMATOCRIT 43.3 % (42.0-52.0); HEMOGLOBIN 14.5 G/DL (14.2-18.0); LYMPHOCYTES % (AUTO) 13.3 % (20.0-45.0); MEAN CORPUSCULAR VOLUME 95 FL (80-99); MONOCYTES % (AUTO) 7.6 % (1.0-10.0); NEUTROPHILS % (AUTO) 71.5 % (45.0-75.0); PLATELET COUNT 201 K/UL (150-450); RED BLOOD COUNT 4.56 M/UL (4.70-6.10); RED CELL DISTRIBUTION WIDTH 14.8 % (11.6-14.8); WHITE BLOOD COUNT 4.7 K/UL (4.8-10.8)
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
[2020-06-29 16:14] LABS: APPEARANCE,URINE CLEAR; BILIRUBIN, URINE NEGATIVE (NEGATIVE); GLUCOSE, URINE (UA) NEGATIVE (NEGATIVE); KETONES,URINE 3+ (NEGATIVE); LEUKOCYTE ESTERASE ,URINE NEGATIVE (NEGATIVE); NITRITE,URINE NEGATIVE (NEGATIVE); PH,URINE 7 (4.5-8.0); PROTEIN,URINE 1+ (NEGATIVE); UROBILINOGEN,URINE 1 MG/DL (0.0-1.0)
[2020-06-29 16:21] LABS: INR 1.1 (0.9-1.1)
[2020-06-29 16:27] LABS: COLOR,URINE YELLOW
[2020-06-29 16:32] LABS: ALANINE AMINOTRANSFERASE 298 U/L (12-78); ALBUMIN 4.3 G/DL (3.4-5.0); ALBUMIN/GLOBULIN RATIO 1.1 (1.0-2.7); ALKALINE PHOSPHATASE 101 U/L (46-116); ANION GAP 11 mmol/L (5-15); ASPARTATE AMINO TRANSFERASE 644 U/L (15-37); BILIRUBIN,TOTAL 0.8 MG/DL (0.2-1.0); BLOOD UREA NITROGEN 9 mg/dL (7-18); CALCIUM 9.4 MG/DL (8.5-10.1); CARBON DIOXIDE 27 MMOL/L (21-32); CHLORIDE 100 MMOL/L (98-107); CREATINE KINASE 465 U/L (26-308); CREATININE 0.6 MG/DL (0.55-1.30); POTASSIUM 4.1 MMOL/L (3.5-5.1); SODIUM 138 MMOL/L (136-145)
--- NOTE | 2020-06-29 18:36 | NUR ---
Patient comes complaining of 3 weeks of right-sided neck pain. He is unaware of how started. And intermittent. He has been vomiting. He drinks alcohol daily. He says his priya and "a lot". He is vomiting yellow material and denies any blood. He denies melena. Patient when he stops drinking he gets the shakes. He denies any withdrawal seizures in the past. Second complaint is that he is complaining about some epigastric pain and says he has a history of pancreatitis.
[2020-06-29] MEDS ORDERED: FAMOTIDINE20 MG ORAL (18:48)
[2020-06-29] MEDS ORDERED: IBUPROFEN600 M1 ORAL (18:48)
[2020-06-29] MEDS ORDERED: ONDANSETRON ODT4 MG BC (18:48)
[2020-06-29] MEDS ORDERED: ALBUTEROL SULF8.5 G1 INH (18:48)
[2020-06-29] MEDS ORDERED: LIBRIUM10 MG ORAL (18:49)
[2020-06-29 20:00] VITALS: BP 177/88
== END 2020-06-29 20:30 | disposition home or self-care (01) ==
LOC: EMR 15:22
DX: M54.2 Cervicalgia (principal); R10.13 Epigastric pain; F10.239 Alcohol dependence with withdrawal, unspecified; S00.81XA Abrasion of other part of head, initial encounter; S60.512A Abrasion of left hand, initial encounter; S60.511A Abrasion of right hand, initial encounter
CPT/HCPCS: 36415; 80053; 81003; 82550; 83690; 85025; 85610; 85730; 96361; 96374; 96375; 96376; 99284; G0480; J1885; J2405; J7030; S0028

== ENCOUNTER 2020-07-09 14:03 | Emergency (ER) | payer SELFPAY ==
[~2020-07-09] VITALS: Ht 167.6 cm; Wt 59.0 kg
[~2020-07-09 14:03] MED LIST changes: +ALBUTEROL SULF8.5 G1 INH; +FAMOTIDINE20 MG ORAL; +IBUPROFEN600 M1 ORAL; +LIBRIUM10 MG ORAL; +ONDANSETRON ODT4 MG BC
[2020-07-09] MEDS ORDERED: Morphine Sulfate 4mg/ml Inj IVP ONE (14:15)
--- NOTE | 2020-07-09 14:18 | Emergency Room Report ---
History of Present Illness General Chief Complaint: To Be Triaged Present Illness HPI 24-year-old male with history of alcoholic pancreatitis here with abdominal pain. Patient admits to drinking heavy amount of alcohol last night. Pain is sharp in nature, located epigastric region, radiates to his back. Says this is similar to with the pancreatitis that he has had many times in the past. Has felt nauseous but is not vomited. No headache, vision change, fevers, chills, chest pain, palpitation, shortness of breath, vomiting, diarrhea, dysuria. Allergies: Coded Allergies: NO KNOWN ALLERGIES (Unverified Allergy, Unknown, 10/29/15) COVID-19 Screening Contact w/high risk pt: No Experienced COVID-19 symptoms?: No Nursing Documentation-PMH Hx Cardiac Problems: No Hx Asthma: Yes Hx Cancer: No Hx Neurological Problems: No Review of Systems All Other Systems: negative except mentioned in HPI Physical Exam Sp02 EP Interpretation: reviewed, normal General Appearance: no apparent distress, alert, non-toxic Head: normocephalic, atraumatic Eyes: bilateral eye normal inspection, bilateral eye PERRL ENT: hearing grossly normal, normal pharynx, no angioedema, normal voice Neck: full range of motion, supple/symm/no masses Respiratory: chest non-tender, lungs clear, normal breath sounds, speaking full sentences Cardiovascular #1: regular rate, rhythm, no edema Cardiovascular #2: 2+ carotid (R), 2+ carotid (L), 2+ radial (R), 2+ radial (L), 2+ dorsalis pedis (R), 2+ dorsalis pedis (L) Gastrointestinal: normal bowel sounds, soft, non-distended, no guarding, no rebound, other - Epigastric abdominal tenderness on palpation. No distention or rebound or guarding Rectal: deferred Genitourinary: normal inspection, no CVA tenderness Musculoskeletal: back normal, normal range of motion, gait/station normal, non- tender Neurologic: alert, motor strength/tone normal, oriented x3, sensory intact, responsive, speech normal Psychiatric: judgement/insight normal, memory normal, mood/affect normal, no suicidal/homicidal ideation Lymphatic: no adenopathy Medical Decision Making Diagnostic Impression: Primary Impression: ETOH abuse Additional Impressions: Abdominal pain Pancreatitis ER Course Laboratory Tests Test 3/27/21 14:25 White Blood Count 7.4 K/UL (4.8-10.8) Red Blood Count 5.19 M/UL (4.70-6.10) Hemoglobin 16.7 G/DL (14.2-18.0) Hematocrit 48.8 % (42.0-52.0) Mean Corpuscular Volume 94 FL (80-99) Mean Corpuscular Hemoglobin 32.2 PG (27.0-31.0) H Mean Corpuscular Hemoglobin Concent 34.2 G/DL (32.0-36.0) Red Cell Distribution Width 13.5 % (11.6-14.8) Platelet Count 431 K/UL (150-450) Mean Platelet Volume 7.2 FL (6.5-10.1) Neutrophils (%) (Auto) 57.9 % (45.0-75.0) Lymphocytes (%) (Auto) 30.2 % (20.0-45.0) Monocytes (%) (Auto) 7.3 % (1.0-10.0) Eosinophils (%) (Auto) 2.4 % (0.0-3.0) Basophils (%) (Auto) 2.1 % (0.0-2.0) H Urine Color Yellow Urine Appearance Clear Urine pH 7 (4.5-8.0) Urine Specific [place] 1.005 (1.005-1.035) Urine Protein 1+ (NEGATIVE) H Urine Glucose (UA) Negative (NEGATIVE) Urine Ketones Negative (NEGATIVE) Urine Blood Negative (NEGATIVE) Urine Nitrite Negative (NEGATIVE) Urine Bilirubin Negative (NEGATIVE) Urine Urobilinogen Normal MG/DL (0.0-1.0) Urine Leukocyte Esterase Negative (NEGATIVE) Urine RBC 0 /HPF (0 - 0) Urine WBC 0-2 /HPF (0 - 0) Urine Squamous Epithelial Cells None /LPF (NONE/OCC) Urine Bacteria Occasional /HPF (NONE) Sodium Level 139 MMOL/L (136-145) Potassium Level 4.1 MMOL/L (3.5-5.1) Chloride Level 100 MMOL/L (98-107) Carbon Dioxide Level 27 MMOL/L (21-32) Anion Gap 12 mmol/L (5-15) Blood Urea Nitrogen 15 mg/dL (7-18) Creatinine 0.8 MG/DL (0.55-1.30) Estimated Glomerular Filtration Rate > 60 mL/min (>60) Glucose Level 124 MG/DL (74-106) H Calcium Level 9.1 MG/DL (8.5-10.1) Total Bilirubin 0.3 MG/DL (0.2-1.0) Aspartate Amino Transferase (AST) 334 U/L (15-37) H Alanine Aminotransferase (ALT) 435 U/L (12-78) H Alkaline Phosphatase 104 U/L (46-116) Total Protein 8.2 G/DL (6.4-8.2) Albumin 4.3 G/DL (3.4-5.0) Globulin 3.9 g/dL Albumin/Globulin Ratio 1.1 (1.0-2.7) Lipase 1452 U/L (73-393) H 24-year-old male here with abdominal pain. Patient was hemodynamically stable and neurovascular intact in the emergency department. He was clinically sober. He admitted to drinking heavy mount of alcohol last night. Lipase was found to be 1400. Patient received morphine and Zofran and Pepcid and said that he felt slightly improved and was tolerating p.o. in the emergency department. He was still feeling some abdominal pain and was wishing to be discharged and so he was given 1 mg of Dilaudid and said that he felt much improved. He was tolerating p.o. intake. Given prescription for [place] and Zofran and told to abstain from alcohol and drug abuse and to follow-up with primary care. He expressed understanding and was discharged. Scripts Ondansetron Odt* (ZOFRAN ODT*) 8 Mg Tab.rapdis 8 MG ORAL Q6H PRN for Nausea & Vomiting, #12 TAB Prov: Corey Torres M.D. 07/09/20 Hydrocodone/Acetaminophen 5-325* (HYDROCODONE/ACETAMINOPHEN 5-325*) 1 Each Tablet 1 TAB ORAL Q4H PRN for For Pain, #10 TAB 0 Refills Prov: Corey Torres M.D. 07/09/20 Corey Torres M.D. Jul 09, 2020 14:18
[2020-07-09 14:36] VITALS: BP 140/80
--- NOTE | 2020-07-09 14:38 | NUR ---
came to er complaints of abdominal pain since yesterday hx of panreatitis with some nausea buy no vomiting
--- NOTE | 2020-07-09 14:39 | NUR ---
meds given as orderd iv infusing
[2020-07-09 15:02] LABS: BASOPHILS % (AUTO) 2.1 % (0.0-2.0); EOSINOPHILS % (AUTO) 2.4 % (0.0-3.0); HEMATOCRIT 48.8 % (42.0-52.0); HEMOGLOBIN 16.7 G/DL (14.2-18.0); LYMPHOCYTES % (AUTO) 30.2 % (20.0-45.0); MEAN CORPUSCULAR VOLUME 94 FL (80-99); MONOCYTES % (AUTO) 7.3 % (1.0-10.0); NEUTROPHILS % (AUTO) 57.9 % (45.0-75.0); PLATELET COUNT 431 K/UL (150-450); RED BLOOD COUNT 5.19 M/UL (4.70-6.10); RED CELL DISTRIBUTION WIDTH 13.5 % (11.6-14.8); WHITE BLOOD COUNT 7.4 K/UL (4.8-10.8)
[2020-07-09 15:24] LABS: APPEARANCE,URINE CLEAR; BILIRUBIN, URINE NEGATIVE (NEGATIVE); GLUCOSE, URINE (UA) NEGATIVE (NEGATIVE); KETONES,URINE NEGATIVE (NEGATIVE); NITRITE,URINE NEGATIVE (NEGATIVE); PH,URINE 7 (4.5-8.0); PROTEIN,URINE 1+ (NEGATIVE); UROBILINOGEN,URINE NORMAL MG/DL (0.0-1.0)
[2020-07-09 15:28] LABS: ANION GAP 12 mmol/L (5-15); BLOOD UREA NITROGEN 15 mg/dL (7-18); CALCIUM 9.1 MG/DL (8.5-10.1); CARBON DIOXIDE 27 MMOL/L (21-32); CHLORIDE 100 MMOL/L (98-107); CREATININE 0.8 MG/DL (0.55-1.30); POTASSIUM 4.1 MMOL/L (3.5-5.1); SODIUM 139 MMOL/L (136-145)
[2020-07-09 15:33] LABS: ALANINE AMINOTRANSFERASE 435 U/L (12-78); ALBUMIN 4.3 G/DL (3.4-5.0); ALBUMIN/GLOBULIN RATIO 1.1 (1.0-2.7); ALKALINE PHOSPHATASE 104 U/L (46-116); ASPARTATE AMINO TRANSFERASE 334 U/L (15-37); BILIRUBIN,TOTAL 0.3 MG/DL (0.2-1.0)
[2020-07-09 15:36] LABS: COLOR,URINE YELLOW; LEUKOCYTE ESTERASE ,URINE NEGATIVE (NEGATIVE)
[2020-07-09] MEDS ORDERED: ZOFRAN ODT8 MG ORAL (15:40)
[2020-07-09] MEDS ORDERED: HYDROCODON-ACE1 EA15 ORAL (15:40)
[2020-07-09] MEDS ORDERED: HYDROmorphone 1mg/ml Carpuject IVP ONE (15:45)
[2020-07-09 16:04] VITALS: BP 127/90
[2020-07-09 16:21] VITALS: BP 127/90
--- NOTE | 2020-07-09 16:25 | NUR ---
ED Nurse Note: Mr. Scherer is alert and oriented able to communicate verbally with no delay or slur, the is able to follow commands and answers questions accurately, pain has improved to 5/10 after pain medication administered, pheripheral IV on the right IV discontinues and applied gauze. he remains saturationg at 99% on room air. discharge information given to patient and discussed about complications,
== END 2020-07-09 16:56 | disposition home or self-care (01) ==
LOC: EMR 14:28
DX: F10.10 Alcohol abuse, uncomplicated (principal); K85.90 Acute pancreatitis without necrosis or infection, unspecified; R10.13 Epigastric pain; J45.909 Unspecified asthma, uncomplicated; Z79.899 Other long term (current) drug therapy
CPT/HCPCS: 36415; 80053; 81003; 83690; 85025; 96361; 96374; 96375; 99284; J1170; J2270; J2405; J7030; S0028